=== PATIENT | female | born 1960 | race Caucasian/White ===

== ENCOUNTER 2018-04-09 08:48 | Observation (INO) ==
[2018-04-09 09:30] LABS: Bilirubin,Urine Small (Negative); Blood,Urine Negative (Negative); Clarity,Urine Clear (Clear); Color,Urine Yellow (Yellow); Glucose,Urine (UA) Normal (Normal); Ketones,Urine 15 mg/dL (Negative); Leukocyte Esterase,Urine Small (Negative); Nitrite,Urine Negative (Negative); PH,Urine 6.5 pH Units (5.0-8.0); Protein,Urine 30 mg/dL (Neg-Trace); Specific Gravity,Urine 1.013 (1.010-1.025); Urobilinogen,Urine Normal (Normal)
[2018-04-09 09:33] LABS: Bacteria,Urine None Seen per hpf (None-Few); Hyaline Casts,Urine None Seen per lpf (None-Few); RBC,Urine 0-3 per hpf (0-3); Squamous Epithelial Cell,Urine Many per lpf (None-Few)
[2018-04-09] MEDS ORDERED: *HR* FentaNYL (PF) 100 MCG/2 ML VIAL IVP ONE (09:51)
[2018-04-09] MEDS ORDERED: 0.9 % Sodium Chloride 1,000 ML IVC ONE (09:51)
[2018-04-09 10:03] LABS: Basophils # 0.1 K/mcL (0.0-0.2); Basophils % 0.3 %; Eosinophils # 0.1 K/mcL (0.0-0.6); Eosinophils % 0.8 %; Hematocrit 46.6 % (35.3-44.9); Hemoglobin 16.1 g/dL (11.5-15.4); Immature Granulocytes % 0.3 % (0-4); Immature Platelets 1.5 % (1.1-6.1); Lymphocytes # 2.6 K/mcL (0.6-4.6); Lymphocytes % 16.9 %; Mean Corpuscular HGB Conc 34.5 g/dL (31.6-35.5); Mean Corpuscular Hemoglobin 29.4 pg (28.0-33.3); Mean Corpuscular Volume 85.2 fL (83.0-100.0); Mean Platelet Volume 8.8 fL (9.4-12.4); Monocytes # 0.8 K/mcL (0.0-1.3); Monocytes % 5.5 %; Neutrophils # 11.7 K/mcL (1.6-8.9); Platelet Count 329 K/mcL (140-400); Red Blood Count 5.47 M/mcL (3.82-4.97); Red Cell Distribution Width 14.9 % (11.5-14.5); Segmented Neutrophils % 76.2 %
--- NOTE | 2018-04-09 10:11 | Emergency Department Note ---
Disposition Clinical Impression: Intractable pain, Ureterolithiasis Disposition: Admitted As Inpatient Condition: Fair Time of Disposition: 09:50 Abdominal Pain HPI - General Chief Complaint: ED Abdominal Pain Stated Complaint: "kidney stone"-sent from Dr Sarkar Time Seen by Provider: 04/09/18 09:11 Source: patient Mode of arrival: ambulatory Limitations: no limitations Nursing Notes Reviewed: Yes Vital Signs Reviewed: Yes - History of Present Illness HPI Narrative: 57-year-old female presents emergency Department with concerns of worsening left flank pain. Patient states she has a 7 mm stone in the left ureter and follows Dr. Sarkar. Patient had a scheduled removal of the stone within the past 2 weeks however her had a heart attack and she therefore canceled the surgery. She now has surgery scheduled for 1 week from now however the pain has become significantly worse. Patient is currently taking oxycodone at home without improvement of her symptoms. She apparently called Dr. Sarkar's office multiple times yesterday, today he recommended she be admitted to the hospital for further evaluation. She denies fever, chills, vomiting, diarrhea, hematochezia, melena. No recent trauma. Pain Scale: 10 - Related Data Allergies Allergy/AdvReac Type Severity Reaction Status Date / Time acetaminophen [From Tylenol] Allergy See Verified 04/09/18 08:52 Comments cephalexin Allergy See Verified 04/09/18 08:52 Comments ciprofloxacin [From Cipro] Allergy See Verified 04/09/18 08:52 Comments levofloxacin Allergy See Verified 04/09/18 08:52 Comments nitrofurantoin Allergy See Verified 04/09/18 08:52 Comments NSAIDS (Non-Steroidal Allergy See Verified 04/09/18 08:52 Anti-Inflamma Comments Penicillins Allergy See Verified 04/09/18 08:52 Comments IV CONTRAST Allergy See Uncoded 08/23/15 16:57 Comments TRIPONS Allergy See Uncoded 08/23/15 16:57 Comments All systems ED: reviewed and negative except as stated. Review of Systems: As Per HPI Abdominal Pain PMH - Past Medical History Medical history: Reports: diabetes, hypertension Female Surgical History: Reports: appendectomy, , herniorrhaphy, hysterectomy, knee replacement Psychiatric history: Reports: depression - Social History Smoking status: Never smoker Alcohol use: Reports: none Drug use: Reports: none Physical Exam General: Alert and in no acute distress Skin: Warm, dry, intact Head: Normocephalic and atraumatic Neck: Supple, trachea midline and no tenderness Cardiovascular: RRR, no murmur, normal perfusion Respiratory: CTAB, no wheezing, cough, or respiratory distress Musculoskeletal: Normal strength, tenderness to percussion of left CVA GI: Soft, nontender, nondistended. Bowel sounds present Neuro: A&O to person, place, time and situation. No focal deficits noted on exam Psychiatric: cooperative and appropriate mood and affect. - General General appearance: alert Course Vital Signs Temperature 98.3 F 04/09/18 08:50 Pulse Rate 125 04/09/18 08:50 Respiratory Rate 18 04/09/18 08:50 Blood Pressure 130/87 04/09/18 08:50 O2 Sat by Pulse Oximetry 95 04/09/18 08:50 Temperature 98.3 F 04/09/18 09:05 Pulse Rate 125 04/09/18 09:05 Respiratory Rate 18 04/09/18 09:05 Blood Pressure 130/87 04/09/18 09:05 O2 Sat by Pulse Oximetry 95 04/09/18 09:05 Oxygen Delivery Oxygen Delivery Room Air Abdominal Pain - MDM Narrative Medical decision making narrative: Patient denied have a urinary tract infection on urinalysis. I spoke with Dr. Sarkar who recommended KUB for further evaluation of the stone. He recommended admitting the patient to his service for further evaluation. - Medical Records Medical records reviewed: Yes I reviewed the patient's medical records. - Lab Data Lab results reviewed: Yes I reviewed the patient's lab results. Result diagrams: 04/09/18 09:56 Lab Results 04/09/18 04/09/18 Range/Units 09:13 09:56 WBC 15.4 H (4.3-11.1) K/mcL RBC 5.47 H (3.82-4.97) M/mcL Hgb 16.1 H (11.5-15.4) g/dL Hct 46.6 H (35.3-44.9) % MCV 85.2 (83.0-100.0) fL MCH 29.4 (28.0-33.3) pg MCHC 34.5 (31.6-35.5) g/dL RDW 14.9 H (11.5-14.5) % Plt Count 329 (140-400) K/mcL MPV 8.8 L (9.4-12.4) fL Immature Gran % 0.3 (0-4) % Seg Neutrophils % 76.2 % Lymphocytes % 16.9 % Monocytes % 5.5 % Eosinophils % 0.8 % Basophils % 0.3 % Neutrophils # 11.7 H (1.6-8.9) K/mcL Lymphocytes # 2.6 (0.6-4.6) K/mcL Monocytes # 0.8 (0.0-1.3) K/mcL Eosinophils # 0.1 (0.0-0.6) K/mcL Basophils # 0.1 (0.0-0.2) K/mcL Immature Plt Fraction 1.5 (1.1-6.1) % Urine Color Yellow (Yellow) Urine Clarity Clear (Clear) Urine pH 6.5 (5.0-8.0) pH Units Ur Specific [place] 1.013 (1.010-1.025) Urine Protein 30 H (Neg-Trace) mg/dL Urine Glucose (UA) Normal (Normal) mg/dL Urine Ketones 15 H (Negative) mg/dL Urine Blood Negative (Negative) Urine Nitrite Negative (Negative) Urine Bilirubin Small H (Negative) Urine Urobilinogen Normal (Normal) mg/dL Ur Leukocyte Esterase Small H (Negative) Urine Microscopic RBC 0-3 (0-3) per hpf Urine Microscopic WBC 5-15 H (0-3) per hpf Ur Squamous Epith Cells Many H (None-Few) per lpf Urine Bacteria None Seen (None-Few) per hpf Hyaline Casts None Seen (None-Few) per lpf Ur Culture Indicated? NO. A (NO)
[2018-04-09 10:15] LABS: INR 1.1; Prothrombin Time 12.7 Seconds (9.4-12.1)
[2018-04-09 10:18] LABS: Activated Partial Thrombo Time 35.2 Seconds (26.0-36.0)
[2018-04-09 10:25] LABS: BUN/Creatinine Ratio 9 (6-26); Blood Urea Nitrogen 7 mg/dL (6-20); Calcium 10.2 mg/dL (8.6-10.3); Carbon Dioxide 17 mEq/L (23-29); Chloride 103 mEq/L (98-107); Glucose 128 mg/dL (70-105); Osmolality,Calculated 282 (280-300); Potassium 3.3 mEq/L (3.5-5.1); Sodium 136 mEq/L (136-145); eGFR For Non-African Americans > 60 (> 60)
--- NOTE | 2018-04-09 11:07 | Emergency Department Note ---
Disposition Clinical Impression: Intractable pain, Ureterolithiasis Disposition: Admitted As Inpatient Condition: Fair General Adult HPI - General Chief complaint: ED Abdominal Pain Stated complaint: "kidney stone"-sent from Dr Sarkar Time Seen by Provider: 04/09/18 09:11 Source: patient Mode of arrival: ambulatory Limitations: no limitations - History of Present Illness Pain Scale: 10 - Related Data Home Medications Medication Instructions Recorded Confirmed Albuterol Sulfate [Albuterol 2 puff IH Q4H PRN 04/09/18 04/09/18 Inhaler] Aspirin Enteric Coated [Aspirin EC] 81 mg PO DAILY 04/09/18 04/09/18 Atorvastatin [Lipitor] 40 mg PO HS 04/09/18 04/09/18 Buspirone HCl [Buspar] 15 mg PO TID PRN 04/09/18 04/09/18 Chlorzoxazone [Chlorzoxazone] 0.5 - 1 tab PO TID PRN 04/09/18 04/09/18 Cholecalciferol (D-3) [Vitamin D] 2,000 unit PO DAILY 04/09/18 04/09/18 DULoxetine [Cymbalta] 60 mg PO DAILY 04/09/18 04/09/18 Ezetimibe [Ezetimibe] 10 mg PO DAILY 04/09/18 04/09/18 Ferrous Sulfate [Iron] 325 mg PO BID 04/09/18 04/09/18 Glimepiride [Amaryl] 6 mg PO QAM 04/09/18 04/09/18 Hyoscyamine SL [Levsin SL] 1 - 2 tab SL Q4-6H PRN 04/09/18 04/09/18 Insulin Glargine,Hum.rec.anlog 10 unit SQ HS 04/09/18 04/09/18 [Basaglar Kwikpen U-100] Levothyroxine Sodium [Levoxyl] 200 mcg PO DAILY 04/09/18 04/09/18 Metformin HCl [Metformin HCl ER] 500 mg PO QID 04/09/18 04/09/18 Metoprolol [Lopressor] 25 mg PO BID 04/09/18 04/09/18 Neomycin Sulfate 500 mg PO MOWEFR 04/09/18 04/09/18 Oxycodone HCl [Oxycodone HCl] 5 mg PO Q6H PRN 04/09/18 04/09/18 Potassium Citrate [Urocit-K] 20 meq PO BID 04/09/18 04/09/18 Pregabalin [Lyrica] 200 mg PO TID 04/09/18 04/09/18 Allergies Allergy/AdvReac Type Severity Reaction Status Date / Time acetaminophen [From Tylenol] Allergy See Verified 04/09/18 08:52 Comments cephalexin Allergy See Verified 04/09/18 08:52 Comments ciprofloxacin [From Cipro] Allergy See Verified 04/09/18 08:52 Comments levofloxacin Allergy See Verified 04/09/18 08:52 Comments nitrofurantoin Allergy See Verified 04/09/18 08:52 Comments NSAIDS (Non-Steroidal Allergy See Verified 04/09/18 08:52 Anti-Inflamma Comments Penicillins Allergy See Verified 04/09/18 08:52 Comments IV CONTRAST Allergy See Uncoded 08/23/15 16:57 Comments TRIPONS Allergy See Uncoded 08/23/15 16:57 Comments Past Medical History - Past Medical History Medical history: Reports: diabetes, hypertension Surgical history: Reports: appendectomy, hysterectomy Psychiatric history: Reports: depression - Social History Smoking Status: Never smoker Alcohol use: Reports: none Drug use: Reports: none Physical Exam - General Limitations: no limitations General appearance: alert Course Vital Signs Temperature 98.3 F 04/09/18 08:50 Pulse Rate 125 04/09/18 08:50 Respiratory Rate 18 04/09/18 08:50 Blood Pressure 130/87 04/09/18 08:50 O2 Sat by Pulse Oximetry 95 04/09/18 08:50 Temperature 98.3 F 04/09/18 09:05 Pulse Rate 125 04/09/18 09:05 Respiratory Rate 18 04/09/18 09:05 Blood Pressure 130/87 04/09/18 09:05 O2 Sat by Pulse Oximetry 95 04/09/18 09:05 Oxygen Delivery Oxygen Delivery Room Air Medical Decision Making - Lab Data Result diagrams: 04/09/18 09:56 04/09/18 09:56 Lab Results 04/09/18 04/09/18 04/09/18 Range/Units 09:13 09:56 09:56 WBC 15.4 H (4.3-11.1) K/mcL RBC 5.47 H (3.82-4.97) M/mcL Hgb 16.1 H (11.5-15.4) g/dL Hct 46.6 H (35.3-44.9) % MCV 85.2 (83.0-100.0) fL MCH 29.4 (28.0-33.3) pg MCHC 34.5 (31.6-35.5) g/dL RDW 14.9 H (11.5-14.5) % Plt Count 329 (140-400) K/mcL MPV 8.8 L (9.4-12.4) fL Immature Gran % 0.3 (0-4) % Seg Neutrophils % 76.2 % Lymphocytes % 16.9 % Monocytes % 5.5 % Eosinophils % 0.8 % Basophils % 0.3 % Neutrophils # 11.7 H (1.6-8.9) K/mcL Lymphocytes # 2.6 (0.6-4.6) K/mcL Monocytes # 0.8 (0.0-1.3) K/mcL Eosinophils # 0.1 (0.0-0.6) K/mcL Basophils # 0.1 (0.0-0.2) K/mcL Immature Plt Fraction 1.5 (1.1-6.1) % PT 12.7 H (9.4-12.1) Seconds INR 1.1 APTT 35.2 (26.0-36.0) Seconds Sodium (136-145) mEq/L Potassium (3.5-5.1) mEq/L Chloride (98-107) mEq/L Carbon Dioxide (23-29) mEq/L BUN (6-20) mg/dL Creatinine (0.60-1.20) mg/dL Est GFR ( Amer) (> 60) Est GFR (Non-Af Amer) (> 60) BUN/Creatinine Ratio (6-26) Glucose (70-105) mg/dL Calculated Osmolality (280-300) Calcium (8.6-10.3) mg/dL Urine Color Yellow (Yellow) Urine Clarity Clear (Clear) Urine pH 6.5 (5.0-8.0) pH Units Ur Specific [place] 1.013 (1.010-1.025) Urine Protein 30 H (Neg-Trace) mg/dL Urine Glucose (UA) Normal (Normal) mg/dL Urine Ketones 15 H (Negative) mg/dL Urine Blood Negative (Negative) Urine Nitrite Negative (Negative) Urine Bilirubin Small H (Negative) Urine Urobilinogen Normal (Normal) mg/dL Ur Leukocyte Esterase Small H (Negative) Urine Microscopic RBC 0-3 (0-3) per hpf Urine Microscopic WBC 5-15 H (0-3) per hpf Ur Squamous Epith Cells Many H (None-Few) per lpf Urine Bacteria None Seen (None-Few) per hpf Hyaline Casts None Seen (None-Few) per lpf Ur Culture Indicated? NO. A (NO) 04/09/18 Range/Units 09:56 WBC (4.3-11.1) K/mcL RBC (3.82-4.97) M/mcL Hgb (11.5-15.4) g/dL Hct (35.3-44.9) % MCV (83.0-100.0) fL MCH (28.0-33.3) pg MCHC (31.6-35.5) g/dL RDW (11.5-14.5) % Plt Count (140-400) K/mcL MPV (9.4-12.4) fL Immature Gran % (0-4) % Seg Neutrophils % % Lymphocytes % % Monocytes % % Eosinophils % % Basophils % % Neutrophils # (1.6-8.9) K/mcL Lymphocytes # (0.6-4.6) K/mcL Monocytes # (0.0-1.3) K/mcL Eosinophils # (0.0-0.6) K/mcL Basophils # (0.0-0.2) K/mcL Immature Plt Fraction (1.1-6.1) % PT (9.4-12.1) Seconds INR APTT (26.0-36.0) Seconds Sodium 136 (136-145) mEq/L Potassium 3.3 L (3.5-5.1) mEq/L Chloride 103 (98-107) mEq/L Carbon Dioxide 17 L (23-29) mEq/L BUN 7 (6-20) mg/dL Creatinine 0.75 (0.60-1.20) mg/dL Est GFR ( Amer) > 60 (> 60) Est GFR (Non-Af Amer) > 60 (> 60) BUN/Creatinine Ratio 9 (6-26) Glucose 128 H (70-105) mg/dL Calculated Osmolality 282 (280-300) Calcium 10.2 (8.6-10.3) mg/dL Urine Color (Yellow) Urine Clarity (Clear) Urine pH (5.0-8.0) pH Units Ur Specific [place] (1.010-1.025) Urine Protein (Neg-Trace) mg/dL Urine Glucose (UA) (Normal) mg/dL Urine Ketones (Negative) mg/dL Urine Blood (Negative) Urine Nitrite (Negative) Urine Bilirubin (Negative) Urine Urobilinogen (Normal) mg/dL Ur Leukocyte Esterase (Negative) Urine Microscopic RBC (0-3) per hpf Urine Microscopic WBC (0-3) per hpf Ur Squamous Epith Cells (None-Few) per lpf Urine Bacteria (None-Few) per hpf Hyaline Casts (None-Few) per lpf Ur Culture Indicated? (NO)
--- NOTE | 2018-04-09 11:29 | Urology History & Physical ---
<Radha Zimmer N - Last Filed: 04/09/18 11:26> Date of Encounter: 04/09/18 Time of Encounter: 11:26 Assessment and Plan (1) Ureterolithiasis Current Visit: Yes Status: Acute Patient is a 57-year-old female with a 7mm left proximal ureteral stone. Patient is tentatively scheduled for ureteroscopic stone extraction with Dr. Sarkar, however given the patient's acute presentation, we will proceed with surgery more promptly. I discussed in detail the surgical procedure as well as potential risks and complications. The patient has previously undergone two ESWL procedures without complication. The patient verbalizes understanding, consent has been signed, and she is prepared to undergo a left ureteroscopic stone extraction with or without laser lithotripsy, and left ureteral stent placement. History of Present Illness Chief complaint: Left flank pain HPI: Ms. Bravo is a 57 year old female who presents to the emergency department with left flank pain and a known left proximal ureteral stone. The patient was previously scheduled for a ureteroscopic stone extraction with Dr. Sarkar. Patient states her to schedule her surgery secondary to her having a myocardial infarction. The patient was subsequently rescheduled for surgery next week, but she states the pain has acutely worsened and she is unable to wait another week. The patient denies any marilee blood in the urine, she admits to frequency, urgency, and hesitancy. Patient denies fever, chills, nausea or vomiting. The patient has undergone KUB x-ray in the emergency department today. Past Med Surg Social Fam HX - Past Medical History Medical history: diabetes, hypertension Psychiatric history: depression - Past Surgical History Surgical History: appendectomy, hysterectomy - Social History Smoking Status: Never smoker Alcohol use: none Drug use: none Medications and Allergies Albuterol Sulfate [Albuterol Inhaler] 2 puff IH Q4H PRN 04/09/18 [History] Aspirin Enteric Coated [Aspirin EC] 81 mg PO DAILY 04/09/18 [History] Atorvastatin [Lipitor] 40 mg PO HS 04/09/18 [History] Buspirone HCl [Buspar] 15 mg PO TID PRN 04/09/18 [History] Chlorzoxazone [Chlorzoxazone] 0.5 - 1 tab PO TID PRN 04/09/18 [History] Cholecalciferol (D-3) [Vitamin D] 2,000 unit PO DAILY 04/09/18 [History] DULoxetine [Cymbalta] 60 mg PO DAILY 04/09/18 [History] Ezetimibe [Ezetimibe] 10 mg PO DAILY 04/09/18 [History] Ferrous Sulfate [Iron] 325 mg PO BID 04/09/18 [History] Glimepiride [Amaryl] 6 mg PO QAM 04/09/18 [History] Hyoscyamine SL [Levsin SL] 1 - 2 tab SL Q4-6H PRN 04/09/18 [History] Insulin Glargine,Hum.rec.anlog [Basaglar Kwikpen U-100] 10 unit SQ HS 04/09/18 [ History] Levothyroxine Sodium [Levoxyl] 200 mcg PO DAILY 04/09/18 [History] Metformin HCl [Metformin HCl ER] 500 mg PO QID 04/09/18 [History] Metoprolol [Lopressor] 25 mg PO BID 04/09/18 [History] Neomycin Sulfate 500 mg PO MOWEFR 04/09/18 [History] Oxycodone HCl [Oxycodone HCl] 5 mg PO Q6H PRN 04/09/18 [History] Potassium Citrate [Urocit-K] 20 meq PO BID 04/09/18 [History] Pregabalin [Lyrica] 200 mg PO TID 04/09/18 [History] 3 Allergy/AdvReac Type Severity Reaction Status Date / Time acetaminophen [From Tylenol] Allergy See Verified 04/09/18 08:52 Comments cephalexin Allergy See Verified 04/09/18 08:52 Comments ciprofloxacin [From Cipro] Allergy See Verified 04/09/18 08:52 Comments levofloxacin Allergy See Verified 04/09/18 08:52 Comments nitrofurantoin Allergy See Verified 04/09/18 08:52 Comments NSAIDS (Non-Steroidal Allergy See Verified 04/09/18 08:52 Anti-Inflamma Comments Penicillins Allergy See Verified 04/09/18 08:52 Comments IV CONTRAST Allergy See Uncoded 08/23/15 16:57 Comments TRIPONS Allergy See Uncoded 08/23/15 16:57 Comments Review of Systems - Constitutional as per HPI, no chills, no fatigue, no fever(s), no weakness - EENT Nose, mouth and throat: no dizziness, no headache(s) - Cardiovascular no chest pain, no dyspnea - Respiratory no cough, no dyspnea - Gastrointestinal no abdominal pain, no change in bowel habits, no nausea, no vomiting - Genitourinary Genitourinary: as per HPI, flank pain, urinary frequency, urinary hesitancy, urinary urgency, no change in urinary stream, no difficulty urinating, no dysuria, no hematuria, no urinary incontinence - Musculoskeletal no muscle weakness, no numbness - Integumentary no rash, no swelling - Neurological no confusion, no sensory deficit Exam Initial Vital Signs Temp Pulse Resp BP Pulse Ox 98.3 F 125 18 130/87 95 04/09/18 08:50 04/09/18 08:50 04/09/18 08:50 04/09/18 08:50 04/09/18 08:50 - General physical appearance Present: well developed, well nourished, no distress - Eyes Present: PERRL, normal ocular movement - ENT Present: normal nares. Absent: nasal discharge - Neck Present: no masses, trachea midline - Respiratory Present: normal respiratory effort - Cardiovascular Cardiovascular exam IM: RRR - Abdomen Abdomen: Present: soft, non tender - Integumentary Present: no rash, no growths, no abnormal pigmentation - Neurologic Present: normal coordination. Absent: disoriented, confused - Musculoskeletal Present: other (no pedal edema ) Urology Results - Labs 04/09/18 09:56 04/09/18 09:56 Abnormal lab results WBC 15.4 K/mcL (4.3-11.1) H 04/09/18 09:56 RBC 5.47 M/mcL (3.82-4.97) H 04/09/18 09:56 Hgb 16.1 g/dL (11.5-15.4) H 04/09/18 09:56 Hct 46.6 % (35.3-44.9) H 04/09/18 09:56 RDW 14.9 % (11.5-14.5) H 04/09/18 09:56 MPV 8.8 fL (9.4-12.4) L 04/09/18 09:56 Neutrophils # 11.7 K/mcL (1.6-8.9) H 04/09/18 09:56 PT 12.7 Seconds (9.4-12.1) H 04/09/18 09:56 Potassium 3.3 mEq/L (3.5-5.1) L 04/09/18 09:56 Carbon Dioxide 17 mEq/L (23-29) L 04/09/18 09:56 Glucose 128 mg/dL (70-105) H 04/09/18 09:56 Urine Protein 30 mg/dL (Neg-Trace) H 04/09/18 09:13 Urine Ketones 15 mg/dL (Negative) H 04/09/18 09:13 Urine Bilirubin Small (Negative) H 04/09/18 09:13 Ur Leukocyte Esterase Small (Negative) H 04/09/18 09:13 Urine Microscopic WBC 5-15 per hpf (0-3) H 04/09/18 09:13 Ur Squamous Epith Cells Many per lpf (None-Few) H 04/09/18 09:13 Ur Culture Indicated? NO. (NO) A 04/09/18 09:13 All other labs normal. - Imaging Abdominal x-ray: report reviewed, image reviewed <Bryce Sarkar - Last Filed: 04/09/18 16:34> Date of Encounter: 04/09/18 Assessment and Plan (1) Ureterolithiasis Current Visit: Yes Status: Acute Patient was seen and examined by myself. KUB confirms a 5 mm distal left ureteral calculi. Patient continues to have pain. I agree with plan to proceed with a left ureteroscopic stone extraction with holmium laser lithotripsy and ureteral stent placement. Will hopefully discharge the patient tonight or tomorrow morning when her pain has improved. Leukocytosis is likely reaction to the stone. No other evidence of sepsis or infection History of Present Illness HPI: Ms. Bravo is a 57 year old female Exam Initial Vital Signs Temp Pulse Resp BP Pulse Ox 98.3 F 125 18 130/87 95 04/09/18 08:50 04/09/18 08:50 04/09/18 08:50 04/09/18 08:50 04/09/18 08:50 Urology Results - Labs 04/09/18 09:56 04/09/18 09:56 Abnormal lab results WBC 15.4 K/mcL (4.3-11.1) H 04/09/18 09:56 RBC 5.47 M/mcL (3.82-4.97) H 04/09/18 09:56 Hgb 16.1 g/dL (11.5-15.4) H 04/09/18 09:56 Hct 46.6 % (35.3-44.9) H 04/09/18 09:56 RDW 14.9 % (11.5-14.5) H 04/09/18 09:56 MPV 8.8 fL (9.4-12.4) L 04/09/18 09:56 Neutrophils # 11.7 K/mcL (1.6-8.9) H 04/09/18 09:56 PT 12.7 Seconds (9.4-12.1) H 04/09/18 09:56 Potassium 3.3 mEq/L (3.5-5.1) L 04/09/18 09:56 Carbon Dioxide 17 mEq/L (23-29) L 04/09/18 09:56 Glucose 128 mg/dL (70-105) H 04/09/18 09:56 Urine Protein 30 mg/dL (Neg-Trace) H 04/09/18 09:13 Urine Ketones 15 mg/dL (Negative) H 04/09/18 09:13 Urine Bilirubin Small (Negative) H 04/09/18 09:13 Ur Leukocyte Esterase Small (Negative) H 04/09/18 09:13 Urine Microscopic WBC 5-15 per hpf (0-3) H 04/09/18 09:13 Ur Squamous Epith Cells Many per lpf (None-Few) H 04/09/18 09:13 Ur Culture Indicated? NO. (NO) A 04/09/18 09:13 All other labs normal.
[2018-04-09] MEDS ORDERED: Ondansetron 4 MG/2 ML VIAL IVP PRN (11:37)
[2018-04-09] MEDS ORDERED: Naloxone 0.4 MG/ML INJ IVP PRN ×2 (11:37→18:13)
[2018-04-09] MEDS ORDERED: 0.9 % Sodium Chloride 1,000 ML IVC SCH (11:45)
[2018-04-09] MEDS ORDERED: *HR* OxyCODONE Immed Rel 5 MG TABLET PO PRN ×2 (12:24→17:24)
[2018-04-09] MEDS ORDERED: OXYCODONE Oral CONC 10 MG/0.5 ML ORAL.SYG SL PRN (12:26)
--- NOTE | 2018-04-09 15:53 | Anesthesia Evaluation PreOp ---
Date of Encounter: 04/09/18 Time of Encounter: 15:51 - Past History Planned Operation: Left USE Cardiac History: HTN Pulmonary History: Denies Any Significant HX [employer] History: Denies Any Significant HX Other Medical History: Renal (Medullary kidney disease, renal tubular acidosis, left ureteric stone), Diabetes Type II Anesthesia History: Past Anesthesia, Problems (PONV) Alcohol Use: none Drug use: none Medications and Allergies Albuterol Sulfate [Albuterol Inhaler] 2 puff IH Q4H PRN 04/09/18 [History] Aspirin Enteric Coated [Aspirin EC] 81 mg PO DAILY 04/09/18 [History] Atorvastatin [Lipitor] 40 mg PO HS 04/09/18 [History] Buspirone HCl [Buspar] 15 mg PO TID PRN 04/09/18 [History] Chlorzoxazone [Chlorzoxazone] 0.5 - 1 tab PO TID PRN 04/09/18 [History] Cholecalciferol (D-3) [Vitamin D] 2,000 unit PO DAILY 04/09/18 [History] DULoxetine [Cymbalta] 60 mg PO DAILY 04/09/18 [History] Ezetimibe [Ezetimibe] 10 mg PO DAILY 04/09/18 [History] Ferrous Sulfate [Iron] 325 mg PO BID 04/09/18 [History] Glimepiride [Amaryl] 6 mg PO QAM 04/09/18 [History] Hyoscyamine SL [Levsin SL] 1 - 2 tab SL Q4-6H PRN 04/09/18 [History] Insulin Glargine,Hum.rec.anlog [Basaglar Kwikpen U-100] 10 unit SQ HS 04/09/18 [ History] Levothyroxine Sodium [Levoxyl] 200 mcg PO DAILY 04/09/18 [History] Metformin HCl [Metformin HCl ER] 500 mg PO QID 04/09/18 [History] Metoprolol [Lopressor] 25 mg PO BID 04/09/18 [History] Neomycin Sulfate 500 mg PO MOWEFR 04/09/18 [History] Oxycodone HCl [Oxycodone HCl] 5 mg PO Q6H PRN 04/09/18 [History] Potassium Citrate [Urocit-K] 20 meq PO BID 04/09/18 [History] Pregabalin [Lyrica] 200 mg PO TID 04/09/18 [History] 3 Allergy/AdvReac Type Severity Reaction Status Date / Time acetaminophen [From Tylenol] Allergy See Verified 04/09/18 08:52 Comments cephalexin Allergy See Verified 04/09/18 08:52 Comments ciprofloxacin [From Cipro] Allergy See Verified 04/09/18 08:52 Comments levofloxacin Allergy See Verified 04/09/18 08:52 Comments nitrofurantoin Allergy See Verified 04/09/18 08:52 Comments NSAIDS (Non-Steroidal Allergy See Verified 04/09/18 08:52 Anti-Inflamma Comments Penicillins Allergy See Verified 04/09/18 08:52 Comments IV CONTRAST Allergy See Uncoded 08/23/15 16:57 Comments TRIPONS Allergy See Uncoded 08/23/15 16:57 Comments - Meds/Allergy Pre-op Review Medications Reviewed: Yes Allergies Reviewed: Yes Anesthesia Results - Labs 04/09/18 09:56 04/09/18 09:56 Anesthesia Exam HEIGHT: 1.5m WEIGHT: 65 kg BMI: 29 Vital Signs/O2 Sat/Glucose, Most Recent Temp Pulse Resp BP Pulse Ox 98.4 F 90 18 117/82 96 04/09/18 12:17 04/09/18 12:17 04/09/18 12:17 04/09/18 12:17 04/09/18 12:17 Blood Glucose* 73 - HEENT Mallampati: I Teeth: Normal Oral Opening: Greater than 3 - Cardiac Rhythm: Regular - Pulmonary Breath Sounds: bilateral Clear Anesthesia Assess/Plan ASA Score: 2 Modified Scott Scale for Level of Consciousness: Cooperative, oriented, and tranquil Anesthetic Plan: General Monitoring Plan: Standard Monitors Recovery Plan: PACU
[2018-04-09] MEDS ORDERED: Vancomycin 1,000 MG VIAL ONE (16:13)
[2018-04-09] MEDS ORDERED: Vancomycin 1,000 MG in D5% in Water 250 ML IVPB ONE (16:48)
[2018-04-09] MEDS ORDERED: Isovue-300 50 ML VIAL IVP ONE (16:49)
[2018-04-09] MEDS ORDERED: *HR* Phenylephrine 10 MG/ML VIAL ONE (16:59)
[2018-04-09] MEDS ORDERED: Ondansetron 4 MG/2 ML VIAL ONE ×2 (17:19→18:06)
[2018-04-09] MEDS ORDERED: Dexamethasone 4 MG/ML VIAL ONE ×2 (17:19→18:06)
[2018-04-09] MEDS ORDERED: *HR* Metoprolol 5 MG/5 ML VIAL IVP ONE (17:20)
[2018-04-09] MEDS ORDERED: Ondansetron 4 MG/2 ML VIAL IVP ONE (17:24)
[2018-04-09] MEDS ORDERED: *HR* Promethazine 25 MG/ML VIAL IVP PRN (17:24)
[2018-04-09] MEDS ORDERED: Ringers Solution, Lactated 1,000 ML IVC SCH (17:30)
[2018-04-09] MEDS ORDERED: *HR* Propofol 200 MG/20 ML VIAL IVP ONE (18:06)
[2018-04-09] MEDS ORDERED: *HR* Midazolam HCl 2 MG/2 ML VIAL ONE (18:06)
[2018-04-09] MEDS ORDERED: *HR* FentaNYL (PF) 100 MCG/2 ML VIAL ONE (18:06)
[2018-04-09] MEDS ORDERED: Lidocaine -MPF 2% 2 ML VIAL ONE (18:06)
[2018-04-09] MEDS ORDERED: Dextrose Gel 15 GM/37.5 ML TUBE PO PRN ×2 (18:13)
[2018-04-09] MEDS ORDERED: *HR* Dextrose 50 % in Water (Syg) 50 ML SYRINGE IVP PRN (18:13)
[2018-04-09] MEDS ORDERED: D5% in Water 1,000 ML IVC PRN (18:13)
--- NOTE | 2018-04-09 18:23 | Operative Note ---
Date of procedure: 04/09/18 Pre-op diagnosis: left distal ureteral stone Post-op diagnosis: same Procedure: left ureteroscopic stone extraction with holmium laser left JJ stent. Anesthesia: GETA Surgeon: Bryce Sarkar Was there an asset protection assistant present: No Estimated blood loss (cc): 0 Specimen: stone fragments Condition: stable Disposition: PACU Procedure in Detail: PROCEDURE IN DETAIL: Patient was taken back to the operating room, positioned supine on the operating table. Anesthesia was applied without complication. They were moved into dorsal lithotomy. Careful attention was maintained to cushion all pressure points for patient's safety. They were prepped and draped in sterile fashion. Time-out was performed with the proper patient and procedure. A 21-Bhutanese rigid cystoscope was inserted into the bladder without difficulty. Systematic examination of bladder revealed no abnormalities. The ureteral orifice was cannulated using a 5-Bhutanese ureteral Catheter and a zip wire passed. A semi-rigid ureteroscope was carefully inserted into the bladder and guided into the ureteral oriface. At that point, the stone was encountered and I felt that it required fragmentation for safe extraction. A 200 micron holmium laser fiber on a setting of 8 and 800 was used to fragment the stone into multiple pieces. The fragments were individually basketed out of the ureter with a 1.9 tipless basket. All stone in the ureter was removed. A 4.8 x 26 ureteral stent was placed over the zip wire under fluoroscopy without complication. The bladder was drained along with the stone fragments. They were collected and sent for stone analysis. The string was left attached to the stent and secured to the patient for easy removal in approximately 72 hours
--- NOTE | 2018-04-09 18:35 | Anesthesia Evaluation Post Op ---
Date of Encounter: 04/09/18 Time of Encounter: 18:05 Notes: Patient's vital signs have been reviewed. Patient is stable postoperatively and has adequately recovered from anesthesia. Patient is determined to have stable airway patency and respiratory function including respiratory rate and oxygen saturation. Patient has a stable heart rate, blood pressure and adequate hydration. Patients mental status is acceptable. Patients temperature is appropriate. Pain and nausea are adequately controlled. - Discharge PostOp Status: Transfer Patient to floor
[2018-04-09] MEDS: Ondansetron 4 MG/2 ML VIAL IVP PRN (19:57)
[2018-04-09] MEDS: *HR* OxyCODONE Immed Rel 5 MG TABLET PO PRN (19:57)
[2018-04-09] MEDS: Insulin LISPRO 300 UNITS/3 ML VIAL SQ SCH (20:27)
[2018-04-09] MEDS: *HR* Metformin 500 MG TABLET PO SCH (21:23)
[2018-04-09] MEDS: Insulin DETEMIR 100 UNIT/ML X5UNITS SQ SCH (21:24)
[2018-04-09] MEDS: Potassium Citrate 10 MEQ TABLET.ER PO SCH (21:24)
[2018-04-09] MEDS: Pregabalin 50 MG CAPSULE PO SCH (21:24)
[2018-04-09] MEDS: OXYCODONE Oral CONC 10 MG/0.5 ML ORAL.SYG SL PRN (23:30)
[2018-04-10] MEDS: Insulin LISPRO 300 UNITS/3 ML VIAL SQ SCH ×4 (02:41→18:19)
[2018-04-10] MEDS: *HR* OxyCODONE Immed Rel 5 MG TABLET PO PRN ×3 (03:39→19:43)
--- NOTE | 2018-04-10 08:32 | Urology Progress Note ---
Date of Encounter: 04/10/18 Time of Encounter: 08:29 - Assessment and Plan (1) Ureterolithiasis Current Visit: Yes Status: Acute Assessment and plan: Patient is a 57-year-old female who underwent a left ureteral stone extraction and left ureteral stent placement on 04/09/2018. This morning the patient accidentally pulled out her ureteral stent while using the restroom. After pulling the stomach, the patient has experienced increased pain. The patient does not believe she is able to go home at this time as her pain has not been well controlled, and she is unable to tolerate normal diet secondary to pain and nausea. We will try IV Zofran and slowly advancing her diet, as well as achieving adequate pain control with oral pain medicine. We will reassess the patient in the morning for potential discharge at that time. Progress Note Subjective: still having pain, tolerating liquids well, no bowel movement, nausea, afebrile Narrative: Patient seen and examined sitting upright in bed in no apparent distress. Patient reports increased pain with accidental stent removal this morning. The patient reports feeling nauseated but no emesis. Patient has not been able to tolerate a normal diet. Patient is voiding without difficulty. Urine is clear. Patient is requesting Zofran. I inquired about patient's allergy to acetaminophen, and patient states she experienced an overdose on Percocet in the past. She was told she is no longer able to ingest acetaminophen safely. Objective Initial Vital Signs Temp Pulse Resp BP Pulse Ox 98.3 F 125 18 130/87 95 04/09/18 08:50 04/09/18 08:50 04/09/18 08:50 04/09/18 08:50 04/09/18 08:50 - General physical appearance Present: well developed, well nourished, no distress, moderate pain - Respiratory Present: normal expansion, normal respiratory effort - Abdomen Present: soft, tender. Absent: distended - Genitourinary Present: other (Left CVAT) - Integumentary Present: no rash, no growths, no abnormal pigmentation - Musculoskeletal Present: normal posture - Psychiatric Present: oriented to time, oriented to person, oriented to place, speech is normal, memory intact - Labs 04/09/18 09:56 04/09/18 09:56 - VTE Documentation of Mechanical Device: Intermittent pneumatic compression device Consult Discharge Plan - Plan Referrals: Tila Quezada MD [Primary Care Provider] -
[2018-04-10] MEDS: OXYCODONE Oral CONC 10 MG/0.5 ML ORAL.SYG SL PRN ×3 (08:44→23:28)
[2018-04-10] MEDS: Ondansetron 4 MG/2 ML VIAL IVP PRN ×2 (08:45→19:37)
[2018-04-10] MEDS: *HR* Glimepiride 2 MG TABLET PO SCH (10:39)
[2018-04-10] MEDS: *HR* Metformin 500 MG TABLET PO SCH ×4 (10:39→20:04)
[2018-04-10] MEDS: Pregabalin 50 MG CAPSULE PO SCH ×3 (10:39→19:46)
[2018-04-10] MEDS: Aspirin Enteric Coated 81 MG Tablet PO SCH (10:40)
[2018-04-10] MEDS: (Ezetimibe [Ezetimibe] 10 MG) PO SCH (10:41)
[2018-04-10] MEDS: Cholecalciferol (D-3) 1,000 UNIT TABLET PO SCH (10:41)
[2018-04-10] MEDS: Potassium Citrate 10 MEQ TABLET.ER PO SCH ×2 (10:41→19:44)
--- NOTE | 2018-04-10 15:31 | Event Note ---
Date of Encounter: 04/10/18 Time of Encounter: 15:27 Patient seen and examined lying in bed. Patient states her pain is more controlled. Patient states Zofran has improved nausea, but she experienced emesis x 1 after eating breakfast. Patient reports sublingual Oxycodone alleviates pain better than 5mg oral dose. Patient states she wishes to stay one more night due to transportation issues and further pain management. Will reevaluate for discharge in am.
[2018-04-10] MEDS: Insulin DETEMIR 100 UNIT/ML X5UNITS SQ SCH (23:27)
[2018-04-11] MEDS: Insulin LISPRO 300 UNITS/3 ML VIAL SQ SCH ×3 (00:34→12:05)
[2018-04-11] MEDS: *HR* OxyCODONE Immed Rel 5 MG TABLET PO PRN ×2 (02:45→12:13)
[2018-04-11] MEDS: Ondansetron 4 MG/2 ML VIAL IVP PRN ×2 (05:27→12:07)
[2018-04-11] MEDS: OXYCODONE Oral CONC 10 MG/0.5 ML ORAL.SYG SL PRN (05:27)
--- NOTE | 2018-04-11 07:59 | Discharge Summary ---
Orders not resulted at time of discharge: Pending orders 04/09/18 17:21 Calculi (stone) Analysis Routine Surgical Pathology [PTH] Routine Date of Encounter: 04/11/18 Time of Encounter: 08:00 - Discharge Diagnosis (1) Ureterolithiasis Priority: Primary Status: Acute (2) Intractable pain Priority: Secondary Status: Acute - Hospital Course Hospital course: Ms. Bravo is a 57 year old female who is a known patient to Dr. Sarkar that presented to the emergency department with complaints of left flank pain, nausea and vomiting. The patient was known to have an existing ureteral stone and was scheduled for surgery. Ultimately given the patient's acute presentation, she was taken to the operating room on 04/09/2018 where she underwent a left ureteroscopic stone extraction with holmium laser and left JJ stent placement. The patient tolerated the procedure well. There were no surgical complications. Her postoperative course did include intractable nausea and intractable pain for which the patient did stay an extra night in the hospital. Upon evaluating the patient at the day of discharge, her symptoms were found to be much improved. The patient is tolerating a normal diet, her pain is well-controlled with oral pain medicine, she was voiding without difficulty and progressing back to baseline. I have discussed with her postoperative restrictions, activity, and follow-up, and she is dismissed in satisfactory condition. Time spent discussing smoking cessation with patient: 3 to 10 minutes - Time Spent with Patient Total time spent providing and/or coordinating discharge services: Less than 30 minutes Procedures and tests throughout hospitalization: left ureteroscopic stone extraction with holmium laser left jj stent placement Labs on day of discharge: Labs from last 24 hours 04/10/18 04/10/18 04/10/18 23:55 19:58 17:03 POC Glucose 114 H 133 H 121 H 04/10/18 04/10/18 11:15 07:20 POC Glucose 113 H 146 H - Impressions ITS Impressions Fluoroscopy 04/09/18 17:05 IMPRESSION: Intraprocedural fluoroscopic spot images as above. See separate procedure report for more information. D/ /09/2018 17:49:53 Keegan Clinton MD / meseret Interpreting Provider: Keegan Clinton MD X-Ray 04/09/18 17:05 IMPRESSION: Intraprocedural fluoroscopic spot images as above. See separate procedure report for more information. D/ /09/2018 17:49:53 Keegan Clinton MD / meseret Interpreting Provider: Keegan Clinton MD - Discharge Medications Prescriptions: Sulfamethoxazole/Trimeth DS [Bactrim DS] 1 each PO BID 7 Days #14 tablet Home Medications: Albuterol Sulfate [Albuterol Inhaler] 2 puff IH Q4H PRN 04/09/18 [History] Aspirin Enteric Coated [Aspirin EC] 81 mg PO DAILY 04/09/18 [History] Atorvastatin [Lipitor] 40 mg PO HS 04/09/18 [History] Buspirone HCl [Buspar] 15 mg PO TID PRN 04/09/18 [History] Chlorzoxazone 0.5 - 1 tab PO TID PRN 04/09/18 [History] Cholecalciferol (D-3) [Vitamin D] 2,000 unit PO DAILY 04/09/18 [History] DULoxetine [Cymbalta] 60 mg PO DAILY 04/09/18 [History] Ezetimibe 10 mg PO DAILY 04/09/18 [History] Ferrous Sulfate [Iron] 325 mg PO BID 04/09/18 [History] Glimepiride [Amaryl] 6 mg PO QAM 04/09/18 [History] Hyoscyamine SL [Levsin Sl] 1 - 2 tab SL Q4-6H PRN 04/09/18 [History] Insulin Glargine,Hum.rec.anlog [Basaglar Kwikpen U-100] 10 unit SQ HS 04/09/18 [ History] Levothyroxine Sodium [Levoxyl] 200 mcg PO DAILY 04/09/18 [History] Metformin HCl [Metformin HCl ER] 500 mg PO QID 04/09/18 [History] Metoprolol [Lopressor] 25 mg PO BID 04/09/18 [History] Neomycin Sulfate 500 mg PO MOWEFR 04/09/18 [History] Potassium Citrate [Urocit-K] 20 meq PO BID 04/09/18 [History] Pregabalin [Lyrica] 200 mg PO TID 04/09/18 [History] Oxycodone HCl 5 mg PO Q6H PRN 3 Days #12 04/11/18 [Rx] Sulfamethoxazole/Trimeth DS [Bactrim DS] 1 each PO BID 7 Days #14 tablet [Rx] Allergies/Adverse Reactions: 3 Allergy/AdvReac Type Severity Reaction Status Date / Time acetaminophen [From Tylenol] Allergy See Verified 04/09/18 08:52 Comments cephalexin Allergy See Verified 04/09/18 08:52 Comments ciprofloxacin [From Cipro] Allergy See Verified 04/09/18 08:52 Comments levofloxacin Allergy See Verified 04/09/18 08:52 Comments nitrofurantoin Allergy See Verified 04/09/18 08:52 Comments NSAIDS (Non-Steroidal Allergy See Verified 04/09/18 08:52 Anti-Inflamma Comments Penicillins Allergy See Verified 04/09/18 08:52 Comments IV CONTRAST Allergy See Uncoded 08/23/15 16:57 Comments TRIPONS Allergy See Uncoded 08/23/15 16:57 Comments Date of admission: 04/09/18 10:07 Primary care physician: Tila Quezada MD Discharging clinician: Radha Zimmer Anticipated date of discharge: 04/11/18 Exam Initial Vital Signs Temp Pulse Resp BP Pulse Ox 98.3 F 125 18 130/87 95 04/09/18 08:50 04/09/18 08:50 04/09/18 08:50 04/09/18 08:50 04/09/18 08:50 - General physical appearance Present: well developed, well nourished, no distress - ENT Present: normal nares. Absent: nasal discharge - Neck Present: no masses, trachea midline - Respiratory Present: normal respiratory effort - Cardiovascular Cardiovascular exam IM: RRR - Abdomen Abdomen: Present: soft, non tender - Genitourinary Present: other (no CVAT bilaterally ) - Integumentary Present: no rash, no abnormal pigmentation - Neurologic Present: normal coordination. Absent: disoriented, confused - Musculoskeletal Present: other (no pedal edema ) - Patient Status Disposition: Home, Self-Care Condition: Good Functional capacity at discharge: uses cane/walker Overall status at discharge: patient is progressing back to baseline - Discharge Instructions Follow Up With: Tila Quezada MD [Primary Care Provider] - Bryce Sarkar MD [Partnered Physician] - Forms: ED Satisfaction Letter, Work/School Release Additional Instructions: Call if fever greater than 101 degrees. Okay to shower. Okay to drive if you are no longer taking her cardiac pain medicine. May experience blood in the urine. May experience irritating voiding symptoms such as frequency, burning, hesitancy , urgency. No heavy lifting greater than 20 pounds or heavy activity for 2 weeks. Call office for follow-up appointment in 4-6 weeks. - Diet and Activity Activity: increase activity as tolerated Diet: diabetic diet - VTE Documentation of Mechanical Device: Intermittent pneumatic compression device
[2018-04-11] MEDS: *HR* Glimepiride 2 MG TABLET PO SCH (09:43)
[2018-04-11] MEDS: *HR* Metformin 500 MG TABLET PO SCH ×2 (09:44→12:05)
[2018-04-11] MEDS: (Ezetimibe [Ezetimibe] 10 MG) PO SCH (09:44)
[2018-04-11] MEDS: Pregabalin 50 MG CAPSULE PO SCH (10:21)
[2018-04-11] MEDS: Potassium Citrate 10 MEQ TABLET.ER PO SCH (10:21)
[2018-04-11] MEDS: Cholecalciferol (D-3) 1,000 UNIT TABLET PO SCH (10:21)
[2018-04-11] MEDS: Aspirin Enteric Coated 81 MG Tablet PO SCH (10:21)
[2018-04-11 12:14] VITALS: BP 113/71
== END 2018-04-11 14:12 | disposition home or self-care (01) ==
LOC: 3BNU 08:48 → EMEROO 08:48 → 3BNU 11:31
PROVIDERS: ADMIT Urology; ATTEND Urology

== ENCOUNTER 2018-05-06 14:58 | Observation (INO) ==
[2018-05-06] MEDS ORDERED: OXYCODONE Oral CONC 10 MG/0.5 ML ORAL.SYG SL PRN (16:13)
[2018-05-06] MEDS ORDERED: Ondansetron 4 MG/2 ML VIAL IVP PRN (16:13)
[2018-05-06] MEDS ORDERED: *HR* Promethazine 25 MG/ML VIAL IVP PRN (16:13)
[2018-05-06] MEDS ORDERED: Naloxone 0.4 MG/ML INJ IVP PRN (16:13)
[2018-05-06] MEDS ORDERED: Hyoscyamine SL 0.125 MG TAB.SUBL SL PRN (16:13)
[2018-05-06] MEDS ORDERED: *HR* Belladonna Alkaloids/Opium 30 MG RECTAL SUPPOSITORY RC PRN (16:13)
[2018-05-06] MEDS ORDERED: *HR* Dextrose 50 % in Water (Syg) 50 ML SYRINGE IVP PRN (16:16)
[2018-05-06] MEDS ORDERED: D5% in Water 1,000 ML IVC PRN (16:16)
[2018-05-06] MEDS ORDERED: Dextrose Gel 15 GM/37.5 ML TUBE PO PRN ×2 (16:16)
[2018-05-06] MEDS ORDERED: Gentamicin 80 MG/2 ML VIAL IVPB ONE (16:17)
--- NOTE | 2018-05-06 16:22 | Urology History & Physical ---
Date of Encounter: 05/06/18 Time of Encounter: 16:21 Assessment and Plan (1) Ureteral stone with hydronephrosis Current Visit: Yes Status: Acute pt states the pain is "terrible" I reviewed the ct images and this is likely a small stone. may have passed from the kidney after recent surgery. will proceed with stone extraction tomorrow. placed on the schedule for tomorrow. pain control tonight. strain urine. History of Present Illness Chief complaint: left flank pain HPI: Ms. Bravo is a 57 year old female recent stone extraction for a 6 mm stone. recurrent flank pain and repeat CT scan showed a 3 mm UVJ stone. still having pain. no fever. some nausea. Past Med Surg Social Fam HX - Past Medical History Medical history: diabetes, hypertension Psychiatric history: depression - Past Surgical History Surgical History: appendectomy, hysterectomy Additional surgical history: Left knee replacement, carpal tunnel hernia repair - Social History Smoking Status: Never smoker Smokeless Tobacco Status: No Alcohol use: none Drug use: none Medications and Allergies Albuterol Sulfate [Albuterol Inhaler] 2 puff IH Q4H PRN 04/09/18 [History] Aspirin Enteric Coated [Aspirin EC] 81 mg PO DAILY 04/09/18 [History] Atorvastatin [Lipitor] 40 mg PO HS 04/09/18 [History] Buspirone HCl [Buspar] 15 mg PO TID PRN 04/09/18 [History] Chlorzoxazone 0.5 - 1 tab PO TID PRN 04/09/18 [History] Cholecalciferol (D-3) [Vitamin D] 2,000 unit PO DAILY 04/09/18 [History] DULoxetine [Cymbalta] 60 mg PO DAILY 04/09/18 [History] Ezetimibe 10 mg PO DAILY 04/09/18 [History] Ferrous Sulfate [Iron] 325 mg PO BID 04/09/18 [History] Glimepiride [Amaryl] 6 mg PO QAM 04/09/18 [History] Hyoscyamine SL [Levsin Sl] 1 - 2 tab SL Q4-6H PRN 04/09/18 [History] Insulin Glargine,Hum.rec.anlog [Basaglar Kwikpen U-100] 10 unit SQ HS 04/09/18 [ History] Levothyroxine Sodium [Levoxyl] 200 mcg PO DAILY 04/09/18 [History] Metformin HCl [Metformin HCl ER] 500 mg PO QID 04/09/18 [History] Metoprolol [Lopressor] 25 mg PO BID 04/09/18 [History] Neomycin Sulfate 500 mg PO MOWEFR 04/09/18 [History] Potassium Citrate [Urocit-K] 20 meq PO BID 04/09/18 [History] Pregabalin [Lyrica] 200 mg PO TID 04/09/18 [History] Oxycodone HCl 5 mg PO Q6H PRN 3 Days #12 04/11/18 [Rx] Sulfamethoxazole/Trimeth DS [Bactrim DS] 1 each PO BID 7 Days #14 tablet [Rx] 3 Allergy/AdvReac Type Severity Reaction Status Date / Time acetaminophen [From Tylenol] Allergy See Verified 04/09/18 08:52 Comments cephalexin Allergy See Verified 04/09/18 08:52 Comments ciprofloxacin [From Cipro] Allergy See Verified 04/09/18 08:52 Comments levofloxacin Allergy See Verified 04/09/18 08:52 Comments nitrofurantoin Allergy See Verified 04/09/18 08:52 Comments NSAIDS (Non-Steroidal Allergy See Verified 04/09/18 08:52 Anti-Inflamma Comments Penicillins Allergy See Verified 04/09/18 08:52 Comments IV CONTRAST Allergy See Uncoded 08/23/15 16:57 Comments TRIPONS Allergy See Uncoded 08/23/15 16:57 Comments Review of Systems - Constitutional as per HPI, fatigue, no chills, no fever(s) - EENT Nose, mouth and throat: no dizziness - Cardiovascular no chest pain - Respiratory no cough - Gastrointestinal abdominal pain, nausea - Genitourinary Genitourinary: flank pain - Musculoskeletal back pain - Integumentary no erythema - Neurological no confusion - Psychiatric no anxiety - Hematologic/Lymphatic no easy bleeding - Allergic/Immunologic no throat swelling Exam Initial Vital Signs Temp Pulse Resp BP Pulse Ox 98.3 F 84 16 131/74 94 05/06/18 15:46 05/06/18 15:46 05/06/18 15:46 05/06/18 15:46 05/06/18 15:46 - General physical appearance Present: well developed, moderate pain - Eyes Present: PERRL - ENT Present: normal nares - Neck Present: no masses - Respiratory Present: normal respiratory effort - Cardiovascular Cardiovascular exam IM: RRR - Abdomen Abdomen: Present: soft, non tender, suprapubic tenderness - Integumentary Present: no rash - Neurologic Present: normal coordination. Absent: disoriented, confused - Additional Findings +CVA tender on left Urology Results - Labs All other labs normal.
[2018-05-06 17:15] LABS: Basophils # 0.1 K/mcL (0.0-0.2); Basophils % 0.4 %; Eosinophils # 0.1 K/mcL (0.0-0.6); Eosinophils % 1.1 %; Hemoglobin 12.3 g/dL (11.5-15.4); Immature Granulocytes % 0.3 % (0-4); Lymphocytes # 2.4 K/mcL (0.6-4.6); Lymphocytes % 20.7 %; Mean Corpuscular HGB Conc 33.2 g/dL (31.6-35.5); Mean Corpuscular Hemoglobin 29.1 pg (28.0-33.3); Mean Corpuscular Volume 87.7 fL (83.0-100.0); Mean Platelet Volume 9.4 fL (9.4-12.4); Monocytes # 0.8 K/mcL (0.0-1.3); Monocytes % 6.7 %; Platelet Count 200 K/mcL (140-400); Red Blood Count 4.22 M/mcL (3.82-4.97); Red Cell Distribution Width 15.4 % (11.5-14.5); Segmented Neutrophils % 70.8 %
[2018-05-06 17:19] LABS: BUN/Creatinine Ratio 21 (6-26); Blood Urea Nitrogen 13 mg/dL (6-20); Calcium 9.1 mg/dL (8.6-10.3); Carbon Dioxide 23 mEq/L (23-29); Chloride 108 mEq/L (98-107); Glucose 127 mg/dL (70-105); Osmolality,Calculated 286 (280-300); Potassium 3.7 mEq/L (3.5-5.1); Sodium 137 mEq/L (136-145); eGFR For Non-African Americans > 60 (> 60)
[2018-05-06] MEDS: OXYCODONE Oral CONC 10 MG/0.5 ML ORAL.SYG SL PRN ×2 (17:21→21:25)
[2018-05-06] MEDS: Insulin LISPRO 300 UNITS/3 ML VIAL SQ SCH ×2 (17:24→23:24)
[2018-05-06] MEDS: 0.9 % Sodium Chloride 1,000 ML IVC SCH (17:24)
[2018-05-07] MEDS: OXYCODONE Oral CONC 10 MG/0.5 ML ORAL.SYG SL PRN ×4 (02:17→20:23)
[2018-05-07] MEDS: 0.9 % Sodium Chloride 1,000 ML IVC SCH ×2 (03:00→16:00)
[2018-05-07] MEDS: Insulin LISPRO 300 UNITS/3 ML VIAL SQ SCH ×3 (05:58→17:16)
[2018-05-07] MEDS ORDERED: Gentamicin 80 MG in 0.9 % Sodium Chloride 100 ML IVPB ONE ×3 (08:00→14:46)
--- NOTE | 2018-05-07 08:55 | Event Note ---
Date of Encounter: 05/07/18 Time of Encounter: 08:53 Patient seen and examined lying in bed in no apparent distress. Patient states pain is well controlled at present. Patient is resting comfortably with no new concerns. Patient denies any questions about procedure.
[2018-05-07] MEDS ORDERED: Pregabalin 50 MG CAPSULE PO SCH (09:00)
[2018-05-07] MEDS ORDERED: Aspirin Enteric Coated 81 MG Tablet PO SCH (09:00)
[2018-05-07] MEDS ORDERED: *HR* FentaNYL (PF) 100 MCG/2 ML VIAL ONE (12:01)
[2018-05-07] MEDS ORDERED: *HR* Midazolam HCl 2 MG/2 ML VIAL ONE (12:02)
[2018-05-07] MEDS ORDERED: *HR* Propofol 200 MG/20 ML VIAL IVP ONE (12:02)
[2018-05-07] MEDS ORDERED: Lidocaine -MPF 2% 2 ML VIAL ONE (12:03)
[2018-05-07] MEDS ORDERED: Ondansetron 4 MG/2 ML VIAL ONE (12:03)
[2018-05-07] MEDS ORDERED: Dexamethasone 4 MG/ML VIAL ONE (12:03)
[2018-05-07] MEDS ORDERED: *HR* Promethazine 25 MG/ML VIAL IVP PRN ×2 (13:20→14:46)
[2018-05-07] MEDS ORDERED: *HR* OxyCODONE Immed Rel 5 MG TABLET PO PRN (13:20)
[2018-05-07] MEDS ORDERED: *HR* FentaNYL (PF) 100 MCG/2 ML VIAL IVP PRN ×2 (13:20→14:46)
--- NOTE | 2018-05-07 13:21 | Anesthesia Evaluation PreOp ---
Date of Encounter: 05/07/18 Time of Encounter: 13:19 - Past History Planned Operation: Left Ureteroscopic Stone Extraction Cardiac History: HTN, Hyperlipidemia Pulmonary History: Former smoker (quit 37 years ago), Asthma NURSE CHARGE RN History: Seizures (one seizure in 2007, not being medically treated) Other Medical History: Diabetes Type II, Thyroid Anesthesia History: Past Anesthesia, Problems (PONV) Alcohol Use: none Drug use: none Medications and Allergies Albuterol Sulfate [Albuterol Inhaler] 2 puff IH Q4H PRN 04/09/18 [History] Aspirin Enteric Coated [Aspirin EC] 81 mg PO DAILY 04/09/18 [History] Atorvastatin [Lipitor] 40 mg PO HS 04/09/18 [History] Buspirone HCl [Buspar] 15 mg PO QID 04/09/18 [History] Cholecalciferol (D-3) [Vitamin D] 2,000 unit PO DAILY 04/09/18 [History] DULoxetine [Cymbalta] 60 mg PO DAILY 04/09/18 [History] Ezetimibe 10 mg PO DAILY 04/09/18 [History] Ferrous Sulfate [Iron] 325 mg PO BID 04/09/18 [History] Insulin Glargine,Hum.rec.anlog [Basaglar Kwikpen U-100] 10 unit SQ HS 04/09/18 [ History] Levothyroxine Sodium [Levoxyl] 200 mcg PO DAILY 04/09/18 [History] Metformin HCl [Metformin HCl ER] 500 mg PO QID 04/09/18 [History] Neomycin Sulfate 500 mg PO WEFR 04/09/18 [History] Potassium Citrate [Urocit-K] 20 meq PO BID 04/09/18 [History] Pregabalin [Lyrica] 200 mg PO TID 04/09/18 [History] Flunisolide [Flunisolide] 2 spr NS BID 05/07/18 [History] OxyCODONE Immed Rel [Roxicodone 5 MG] 5 mg PO Q12HR 05/07/18 [History] Zolmitriptan [Zomig] 5 mg PO DAILY PRN 05/07/18 [History] hydroCHLOROthiazide [Hydrochlorothiazide] 12.5 mg PO DAILY 05/07/18 [History] 3 Allergy/AdvReac Type Severity Reaction Status Date / Time acetaminophen [From Tylenol] Allergy See Verified 04/09/18 08:52 Comments cephalexin Allergy See Verified 04/09/18 08:52 Comments ciprofloxacin [From Cipro] Allergy See Verified 04/09/18 08:52 Comments levofloxacin Allergy See Verified 04/09/18 08:52 Comments nitrofurantoin Allergy See Verified 04/09/18 08:52 Comments NSAIDS (Non-Steroidal Allergy See Verified 04/09/18 08:52 Anti-Inflamma Comments Penicillins Allergy See Verified 04/09/18 08:52 Comments IV CONTRAST Allergy See Uncoded 08/23/15 16:57 Comments TRIPONS Allergy See Uncoded 08/23/15 16:57 Comments - Meds/Allergy Pre-op Review Medications Reviewed: Yes Allergies Reviewed: Yes Beta Blockers on Current Med List: Yes If Beta Blockers taken, Date/Time (Last Dose taken): 05/07/2018 at 0815 Anesthesia Results - Labs 05/06/18 16:47 05/06/18 16:47 Anesthesia Exam Vital Signs/O2 Sat/Glucose, Most Recent Temp Pulse Resp BP Pulse Ox 97.7 F 64 14 99/63 96 05/07/18 10:23 05/07/18 10:23 05/07/18 10:23 05/07/18 10:23 05/07/18 10:23 Blood Glucose* 97 Height: 4'11''/1.5m Weight: 156 lbs/71 kg NPO (# of Hours): 8 Pain Scale: 10 (left side) Pain Scale Used: Numeric (1 - 10) - HEENT Pupil (Motor): EOMI Mallampati: II Teeth: Normal Oral Opening: Greater than 3 - NURSE CHARGE RN LOC: Oriented NURSE CHARGE RN Motor: Normal RUE, Normal LUE, Normal RLE, Normal LLE, Normal Face NURSE CHARGE RN Sensory: Normal: RUE, LUE, Face, Deficit: RLE, LLE - Cardiac Rhythm: Regular Murmur: None - Pulmonary Breath Sounds: bilateral Clear Respiratory Effort: Symmetrical Anesthesia Assess/Plan ASA Score: 3 Modified Scott Scale for Level of Consciousness: Cooperative, oriented, and tranquil Anesthetic Plan: General Monitoring Plan: Standard Monitors Recovery Plan: PACU
[2018-05-07] MEDS ORDERED: Isovue-300 50 ML VIAL IVP ONE (13:34)
[2018-05-07] MEDS ORDERED: EPHEDrine 50 MG/ML VIAL ONE (14:01)
--- NOTE | 2018-05-07 14:19 | Discharge Summary ---
Date of Encounter: 05/07/18 Time of Encounter: 14:16 - Discharge Diagnosis (1) Ureteral stone with hydronephrosis Priority: Primary Status: Resolved - Hospital Course Hospital course: Ms. Bravo is a 57 year old female admitted with a 3 mm distal ureteral stone. Status post successful stone extraction. Plan to discharge from pain controlled - Time Spent with Patient Total time spent providing and/or coordinating discharge services: Labs on day of discharge: Labs from last 24 hours 05/06/18 05/06/18 05/06/18 20:58 16:47 16:47 WBC 11.3 H RBC 4.22 Hgb 12.3 Hct 37.0 MCV 87.7 MCH 29.1 MCHC 33.2 RDW 15.4 H Plt Count 200 MPV 9.4 Immature Gran % 0.3 Seg Neutrophils % 70.8 Lymphocytes % 20.7 Monocytes % 6.7 Eosinophils % 1.1 Basophils % 0.4 Neutrophils # 8.0 Lymphocytes # 2.4 Monocytes # 0.8 Eosinophils # 0.1 Basophils # 0.1 Sodium 137 Potassium 3.7 Chloride 108 H Carbon Dioxide 23 BUN 13 Creatinine 0.62 Est GFR ( Amer) > 60 Est GFR (Non-Af Amer) > 60 BUN/Creatinine Ratio 21 Glucose 127 H POC Glucose 139 H Calculated Osmolality 286 Calcium 9.1 - Discharge Medications Home Medications: Albuterol Sulfate [Albuterol Inhaler] 2 puff IH Q4H PRN 04/09/18 [History] Aspirin Enteric Coated [Aspirin EC] 81 mg PO DAILY 04/09/18 [History] Atorvastatin [Lipitor] 40 mg PO HS 04/09/18 [History] Buspirone HCl [Buspar] 15 mg PO QID 04/09/18 [History] Cholecalciferol (D-3) [Vitamin D] 2,000 unit PO DAILY 04/09/18 [History] DULoxetine [Cymbalta] 60 mg PO DAILY 04/09/18 [History] Ezetimibe 10 mg PO DAILY 04/09/18 [History] Ferrous Sulfate [Iron] 325 mg PO BID 04/09/18 [History] Insulin Glargine,Hum.rec.anlog [Basaglar Kwikpen U-100] 10 unit SQ HS 04/09/18 [ History] Levothyroxine Sodium [Levoxyl] 200 mcg PO DAILY 04/09/18 [History] Metformin HCl [Metformin HCl ER] 500 mg PO QID 04/09/18 [History] Neomycin Sulfate 500 mg PO WEFR 04/09/18 [History] Potassium Citrate [Urocit-K] 20 meq PO BID 04/09/18 [History] Pregabalin [Lyrica] 200 mg PO TID 04/09/18 [History] Flunisolide 2 spr NS BID 05/07/18 [History] Insulin LISPRO [HumaLOG] 0 units SQ Q6HR vial 05/07/18 [Rx] Metoprolol [Lopressor] 25 mg PO BID tablet 05/07/18 [Rx] OxyCODONE Immed Rel [Roxicodone 5 MG] 5 mg PO Q12HR 05/07/18 [History] Zolmitriptan [Zomig] 5 mg PO DAILY PRN 05/07/18 [History] hydroCHLOROthiazide [Hydrochlorothiazide] 12.5 mg PO DAILY 05/07/18 [History] Allergies/Adverse Reactions: 3 Allergy/AdvReac Type Severity Reaction Status Date / Time acetaminophen [From Tylenol] Allergy See Verified 04/09/18 08:52 Comments cephalexin Allergy See Verified 04/09/18 08:52 Comments ciprofloxacin [From Cipro] Allergy See Verified 04/09/18 08:52 Comments levofloxacin Allergy See Verified 04/09/18 08:52 Comments nitrofurantoin Allergy See Verified 04/09/18 08:52 Comments NSAIDS (Non-Steroidal Allergy See Verified 04/09/18 08:52 Anti-Inflamma Comments Penicillins Allergy See Verified 04/09/18 08:52 Comments IV CONTRAST Allergy See Uncoded 08/23/15 16:57 Comments TRIPONS Allergy See Uncoded 08/23/15 16:57 Comments Date of admission: 05/06/18 15:25 Primary care physician: Tila Quezada MD Discharging clinician: Bryce Sarkar Anticipated date of discharge: 05/07/18 Exam Initial Vital Signs Temp Pulse Resp BP Pulse Ox 98.3 F 84 16 131/74 94 05/06/18 15:46 05/06/18 15:46 05/06/18 15:46 05/06/18 15:46 05/06/18 15:46 - General physical appearance Present: well developed, no distress - Patient Status Disposition: Home, Self-Care Condition: Good Functional capacity at discharge: independent ambulation Overall status at discharge: patient is progressing back to baseline - Discharge Instructions Follow Up With: Tila Quezada MD [Primary Care Provider] - Bryce Sarkar MD [Partnered Physician] - (my office will contact pt to schedule stent removal) Additional Instructions: Expect stent discomfort including urgency, frequency, burning on urination, blood in the urine, light flank pain My office will contact patient to schedule stent removal - Diet and Activity Activity: other Diet: diabetic diet
--- NOTE | 2018-05-07 14:21 | Operative Note ---
Date of procedure: 05/07/18 Pre-op diagnosis: left 3 mm ureteral stone Post-op diagnosis: same Procedure: Left ureteroscopic stone extraction Left ureteral stent placement Anesthesia: GETA Surgeon: Bryce Sarkar Was there an assistant teaching professor present: No Estimated blood loss (cc): 0 Specimen: Stone not sent Condition: stable Disposition: PACU Procedure in Detail: PROCEDURE IN DETAIL: Patient was taken back to the operating room, positioned supine on the operating table. Anesthesia was applied without complication. They were moved into dorsal lithotomy. Careful attention was maintained to cushion all pressure points for patient's safety. They were prepped and draped in sterile fashion. Time-out was performed with the proper patient and procedure. A 21-Danish rigid cystoscope was inserted into the bladder without difficulty. Systematic examination of bladder revealed no abnormalities. The ureteral orifice was cannulated using a 5-Danish ureteral Catheter and a zip wire was passed. I then passed the semirigid ureteroscope into the distal ureter and encountered the stone which corresponded to 3 mm stone seen on outside imaging. I was able to basket extract the stone without performing laser lithotripsy. I then placed a 4.8 x 24 ureteral stent area and I did not leave a dangle string because the patient previously accidentally removed her stent immediately after a previous stone extraction.
[2018-05-07] MEDS ORDERED: *HR* Belladonna Alkaloids/Opium 30 MG RECTAL SUPPOSITORY RC PRN (14:46)
[2018-05-07] MEDS ORDERED: *HR* Dextrose 50 % in Water (Syg) 50 ML SYRINGE IVP PRN (14:46)
[2018-05-07] MEDS ORDERED: Dextrose Gel 15 GM/37.5 ML TUBE PO PRN ×2 (14:46)
[2018-05-07] MEDS ORDERED: Hyoscyamine SL 0.125 MG TAB.SUBL SL PRN (14:46)
[2018-05-07] MEDS ORDERED: D5% in Water 1,000 ML IVC PRN (14:46)
[2018-05-07] MEDS ORDERED: Naloxone 0.4 MG/ML INJ IVP PRN (14:46)
[2018-05-07] MEDS ORDERED: OXYCODONE Oral CONC 10 MG/0.5 ML ORAL.SYG SL PRN (14:46)
--- NOTE | 2018-05-07 15:16 | Anesthesia Evaluation Post Op ---
Date of Encounter: 05/07/18 Time of Encounter: 15:14 - Vital Signs Vital Signs: Vital Signs/O2 Sat, Most Current Temp Pulse Resp BP Pulse Ox 98.1 F 82 16 104/67 95 05/07/18 14:56 05/07/18 14:56 05/07/18 14:56 05/07/18 14:56 05/07/18 14:56 - Lungs Lungs: Clear Ascult./Percussion - Airway Airway: Non-obstructed - Mental Status Mental Status: Alert & Oriented, Answers Appropriately - Pain Pain Scale: 0 Pain Scale used: Numeric (1 - 10) - Nausea Vomiting Nausea Vomiting: Not Present - Hydration Hydration: Ice chips - Discharge PostOp Status: Transfer Patient to floor Attestation: I have assessed this patient and find they meet discharge criteria.
[2018-05-07] MEDS: Pregabalin 50 MG CAPSULE PO SCH ×2 (15:54→20:23)
[2018-05-08] MEDS: Insulin LISPRO 300 UNITS/3 ML VIAL SQ SCH ×2 (00:13→05:44)
[2018-05-08] MEDS: OXYCODONE Oral CONC 10 MG/0.5 ML ORAL.SYG SL PRN ×3 (00:30→10:34)
[2018-05-08] MEDS: Ondansetron 4 MG/2 ML VIAL IVP PRN ×2 (00:34→08:25)
[2018-05-08] MEDS: 0.9 % Sodium Chloride 1,000 ML IVC SCH (01:50)
[2018-05-08 05:42] VITALS: BP 99/59
--- NOTE | 2018-05-08 07:30 | Urology Progress Note ---
Date of Encounter: 05/08/18 Time of Encounter: 07:28 - Assessment and Plan (1) Ureteral stone with hydronephrosis Current Visit: Yes Status: Resolved Assessment and plan: p states her ride will be here at 10 am. will arrange outpatient cysto stent removal. Progress Note Subjective: feels better Narrative: pt feels well. some blood in the urine. Objective Initial Vital Signs Temp Pulse Resp BP Pulse Ox 98.3 F 84 16 131/74 94 05/06/18 15:46 05/06/18 15:46 05/06/18 15:46 05/06/18 15:46 05/06/18 15:46 - General physical appearance Present: no distress - Labs 05/06/18 16:47 05/06/18 16:47 - VTE Documentation of Mechanical Device: Intermittent pneumatic compression device Consult Discharge Plan - Plan Additional Instructions: Expect stent discomfort including urgency, frequency, burning on urination, blood in the urine, light flank pain My office will contact patient to schedule stent removal Referrals: Bryce Sarkar MD [Partnered Physician] - (my office will contact pt to schedule stent removal) Tila Quezada MD [Primary Care Provider] -
[2018-05-08] MEDS: Pregabalin 50 MG CAPSULE PO SCH (08:26)
[2018-05-08] MEDS ORDERED: Aspirin Enteric Coated 81 MG Tablet PO SCH (09:00)
[2018-05-08] MEDS ORDERED: (Ezetimibe [Ezetimibe] 10 MG) PO SCH (09:00)
== END 2018-05-08 10:49 | disposition home or self-care (01) ==
LOC: 3ANU
PROVIDERS: ADMIT Urology; ATTEND Urology

== ENCOUNTER 2018-05-16 13:59 | Observation (INO) ==
[2018-05-16] MEDS ORDERED: *HR* HYDROcodone/Acet 5/325 mg TABLET PO PRN (17:20)
[2018-05-16] MEDS ORDERED: Naloxone 0.4 MG/ML INJ IVP PRN (17:20)
[2018-05-16] MEDS ORDERED: NON-FORMULARY MEDICATION 1 EACH EACH (Zolmitriptan [Zomig] 5 MG) PO PRN (17:29)
--- NOTE | 2018-05-16 17:37 | Internal Med History&Physical ---
Date of Encounter: 05/16/18 Time of Encounter: 17:36 Internal Medicine - H&P: HPI Chief complaint: Flank Pain and Tachycardia and Leukocytosis Admitted From: Hospital to Hospital Transfer Plans for Post Hospital Care: Home History of present illness: Ms. Bravo is a 57 year old female after being sent in for leukocytosis done on outpatient lab primary care physician. Patient reports left flank pain and elevated heart rate as well. Patient recently had ureteral stent patient by Dr. Sarkar on the 07 of May. Patient states that she has had discomfort in the left flank however the pain is gotten worse over the past few days and is now having significant pain with urination. Patient was tachycardic in the 120s per documentation at [facility] department. The patient was given IV fluids and given 1 dose of IV Levaquin and transferred to [facility] for further management. Patient states that she is having moderate pain on her left flank as well as pain with urination. Patient denies any chest pain, shortness of breath, nausea, vomiting, diarrhea. Patient states that she always has a fast heart rate. Denies any recent fever or chills at home. Denies travel or sick contacts. Multiple allergies but tolerated IV Levaquin without issues at [facility] Past Med Surg Social Fam HX - Past Medical History Medical history: diabetes, hypertension Psychiatric history: depression - Past Surgical History Surgical History: appendectomy, hysterectomy Additional surgical history: Left knee replacement, carpal tunnel hernia repair - Social History Smoking Status: Never smoker Smokeless Tobacco Status: No Alcohol use: none Drug use: none Internal Medicine - H&P: Meds Albuterol Sulfate [Albuterol Inhaler] 2 puff IH Q4H PRN 04/09/18 [History] Aspirin Enteric Coated [Aspirin EC] 81 mg PO DAILY 04/09/18 [History] Atorvastatin [Lipitor] 40 mg PO HS 04/09/18 [History] Buspirone HCl [Buspar] 15 mg PO QID 04/09/18 [History] Cholecalciferol (D-3) [Vitamin D] 2,000 unit PO DAILY 04/09/18 [History] DULoxetine [Cymbalta] 60 mg PO DAILY 04/09/18 [History] Ezetimibe 10 mg PO DAILY 04/09/18 [History] Ferrous Sulfate [Iron] 325 mg PO BID 04/09/18 [History] Insulin Glargine,Hum.rec.anlog [Basaglar Kwikpen U-100] 10 unit SQ HS 04/09/18 [ History] Levothyroxine Sodium [Levoxyl] 200 mcg PO DAILY 04/09/18 [History] Metformin HCl [Metformin HCl ER] 500 mg PO QID 04/09/18 [History] Neomycin Sulfate 500 mg PO WEFR 04/09/18 [History] Potassium Citrate [Urocit-K] 20 meq PO BID 04/09/18 [History] Pregabalin [Lyrica] 200 mg PO TID 04/09/18 [History] Flunisolide 2 spr NS BID 05/07/18 [History] Insulin LISPRO [HumaLOG] 0 units SQ Q6HR vial 05/07/18 [Rx] OxyCODONE Immed Rel [Roxicodone 5 MG] 5 mg PO Q12HR 05/07/18 [History] Zolmitriptan [Zomig] 5 mg PO DAILY PRN 05/07/18 [History] hydroCHLOROthiazide [Hydrochlorothiazide] 12.5 mg PO DAILY 05/07/18 [History] 3 Allergy/AdvReac Type Severity Reaction Status Date / Time acetaminophen [From Tylenol] Allergy See Verified 04/09/18 08:52 Comments cephalexin Allergy See Verified 04/09/18 08:52 Comments ciprofloxacin [From Cipro] Allergy See Verified 04/09/18 08:52 Comments levofloxacin Allergy See Verified 04/09/18 08:52 Comments nitrofurantoin Allergy See Verified 04/09/18 08:52 Comments NSAIDS (Non-Steroidal Allergy See Verified 04/09/18 08:52 Anti-Inflamma Comments Penicillins Allergy See Verified 04/09/18 08:52 Comments IV CONTRAST Allergy See Uncoded 08/23/15 16:57 Comments TRIPONS Allergy See Uncoded 08/23/15 16:57 Comments All Systems PM: A 10-system review of systems was performed and is negative for pertinent findings except as documented above in the HPI. Review of systems: 10 point review of systems is obtained and is otherwise negative other than described in history of present illness - Constitutional Vitals: Temp Pulse Resp BP Pulse Ox 98.8 F 92 16 115/75 93 05/16/18 15:50 05/16/18 15:50 05/16/18 15:50 05/16/18 15:50 05/16/18 15:50 Exam: Constitutional: No acute distress, Alert, non toxic, lying comfotably in bed Psych: AAO x 3 HEENT: NCAT, EOMI Neck: supple, no JVD Cardio: tachycardic +s1s2, no murmurs/rubs/gallops, no JVD Resp: clear to ascultation bilaterally Abd: soft, mild left flank tenderness, no guarding rebound or rigidity Extremities: no clubbing/cyanosis/edema appreciated Neuro: no focal deficits appreciated Lymph: no cervical/supraclavicular adenopahty apprecitated - Assessment and plan (1) SIRS (systemic inflammatory response syndrome) Current Visit: Yes Status: Acute Assessment and plan: Patient presented with leukocytosis reported to be 20,000 on outpatient labs and 18,000 at outside facility emergency department -Also with tachycardia of 123 upon presentation to emergency department -Patient reports long-standing history of tachycardia however usually not this high -Patient denies any fevers at home -Patient admits to worsening flank pain and worsening pain with urination -Leukocytosis may be reactive secondary to ureteral stent put in combination with tachycardia and flank pain and worsening dysuria; will rule out pyelonephritis and recurrent nephrolithiasis with CT scan -Blood cultures ordered and urinalysis with reflex culture if indicated ordered (2) Flank pain Current Visit: Yes Status: Acute Assessment and plan: Patient with left flank pain since recent ureteral stent placement on [address] Sarkar. -flank pain to be expected but recent worsening of pain -rule out recurrent nephrolithiasis and pyelonephritis -Obtain CT of the abdomen without contrast -We will consult urology if necessary based on imaging studies -Obtain urine analysis and blood cultures -Continue IV Levaquin that was started at outside facility -Would like to avoid fluoroquinolone but patient has multiple allergies, will discontinue if urinalysis unremarkable and imaging not concerning for pyelonephritis (3) Nephrolithiasis Current Visit: No Status: Acute Assessment and plan: Hx of nephrolithiasis -recent uretal stent placment on 05/[address] Sarkar -worsening flank pain -order CT to eval for pyelonephritis and recurrent nephrolithiasis (4) HTN (hypertension) Current Visit: Yes Status: Acute Assessment and plan: BP Stable -continue home meds Qualifiers: Hypertension type: essential hypertension Qualified Code(s): I10 - Essential (primary) hypertension (5) Diabetes Current Visit: Yes Status: Acute Assessment and plan: DM type II -was on insulin but recently taken off -on metformin -low dose sliding scale -monitor accuchecks Qualifiers: Diabetes mellitus type: type 2 Diabetes mellitus intermodal truck driver insulin use: without intermodal truck driver use Diabetes mellitus complication status: with neurologic complications Diabetes mellitus complication detail: with polyneuropathy Qualified Code(s): E11.42 - Type 2 diabetes mellitus with diabetic polyneuropathy (6) DVT prophylaxis Current Visit: Yes Status: Acute Assessment and plan: hep sub q - Time Spent With Patient Total time spent is greater than 50% in coordination of care (as documented) at patient's floor/unit and/or counseling patient: Greater than 35 minutes
[2018-05-16] MEDS: Insulin LISPRO 300 UNITS/3 ML VIAL SQ SCH ×2 (17:58→20:35)
[2018-05-16] MEDS: *HR* Heparin 5,000 UNIT/ML VIAL SQ SCH (18:06)
[2018-05-16] MEDS: *HR* OxyCODONE Immed Rel 5 MG TABLET PO SCH (18:06)
[2018-05-16] MEDS: 0.9 % Sodium Chloride 1,000 ML IVC SCH (18:09)
[2018-05-16 18:10] LABS: Basophils # 0.1 K/mcL (0.0-0.2); Basophils % 0.4 %; Eosinophils # 0.3 K/mcL (0.0-0.6); Eosinophils % 2.4 %; Hematocrit 47.6 % (35.3-44.9); Immature Granulocytes % 0.5 % (0-4); Mean Corpuscular Hemoglobin 29.6 pg (28.0-33.3); Mean Corpuscular Volume 89.8 fL (83.0-100.0); Mean Platelet Volume 9.3 fL (9.4-12.4); Monocytes % 6.7 %; Neutrophils # 9.8 K/mcL (1.6-8.9); Platelet Count 299 K/mcL (140-400); Red Cell Distribution Width 15.9 % (11.5-14.5)
[2018-05-16 18:26] LABS: BUN/Creatinine Ratio 17 (6-26); Blood Urea Nitrogen 11 mg/dL (6-20); Calcium 9.2 mg/dL (8.6-10.3); Carbon Dioxide 20 mEq/L (23-29); Chloride 106 mEq/L (98-107); Glucose 89 mg/dL (70-105); Osmolality,Calculated 283 (280-300); Potassium 3.5 mEq/L (3.5-5.1); Sodium 137 mEq/L (136-145); eGFR For Non-African Americans > 60 (> 60)
--- NOTE | 2018-05-16 18:41 | Event Note ---
Date of Encounter: 05/16/18 Time of Encounter: 18:40 CT of the abdomen revealed pneumobilia. Patient nontoxic appearing. We will consult GI. Patient denies any recent history of upper endoscopy or ERCP or gallbladder surgery.
[2018-05-16 18:42] LABS: Hemoglobin 15.7 g/dL (11.5-15.4)
[2018-05-16 19:42] LABS: Bilirubin,Urine Negative (Negative); Blood,Urine Large (Negative); Clarity,Urine Cloudy (Clear); Color,Urine Yellow (Yellow); Glucose,Urine (UA) Normal (Normal); Ketones,Urine Trace mg/dL (Negative); Leukocyte Esterase,Urine Large (Negative); Nitrite,Urine Negative (Negative); PH,Urine 6.5 pH Units (5.0-8.0); Protein,Urine 100 mg/dL (Neg-Trace); Specific Gravity,Urine 1.009 (1.010-1.025); Urobilinogen,Urine Normal (Normal)
[2018-05-16 19:46] LABS: Bacteria,Urine None Seen per hpf (None-Few); Hyaline Casts,Urine None Seen per lpf (None-Few); RBC,Urine 15-30 per hpf (0-3); Squamous Epithelial Cell,Urine Many per lpf (None-Few); WBC,Urine TNTC per hpf (0-3)
[2018-05-16] MEDS: Pregabalin 50 MG CAPSULE PO SCH (20:26)
[2018-05-16] MEDS: Fluticasone Propionate Nasal 50 MCG/SPRAY BOTTLE NS SCH (20:30)
[2018-05-17] MEDS ORDERED: *HR* OxyCODONE Immed Rel 5 MG TABLET PO ONE (02:46)
[2018-05-17 03:09] LABS: Basophils # 0.1 K/mcL (0.0-0.2); Basophils % 0.5 %; Eosinophils # 0.4 K/mcL (0.0-0.6); Eosinophils % 3.2 %; Hematocrit 40.3 % (35.3-44.9); Immature Granulocytes % 0.4 % (0-4); Immature Platelets 2.5 % (1.1-6.1); Lymphocytes % 26.6 %; Mean Corpuscular HGB Conc 33.3 g/dL (31.6-35.5); Mean Corpuscular Hemoglobin 29.8 pg (28.0-33.3); Mean Corpuscular Volume 89.6 fL (83.0-100.0); Mean Platelet Volume 9.2 fL (9.4-12.4); Monocytes # 0.9 K/mcL (0.0-1.3); Monocytes % 8.1 %; Neutrophils # 6.8 K/mcL (1.6-8.9); Platelet Count 244 K/mcL (140-400); Red Cell Distribution Width 15.9 % (11.5-14.5); Segmented Neutrophils % 61.2 %
[2018-05-17 03:28] LABS: Hemoglobin 13.4 g/dL (11.5-15.4)
[2018-05-17 03:31] LABS: Albumin 3.3 g/dL (3.5-5.7); Albumin/Globulin Ratio 1.2 (1.1-2.2); BUN/Creatinine Ratio 18 (6-26); Bilirubin,Direct 0.2 mg/dL (0.0-0.2); Bilirubin,Indirect 0.5 mg/dL (0.0-1.2); Bilirubin,Total 0.7 mg/dL (0.3-1.0); Blood Urea Nitrogen 12 mg/dL (6-20); Calcium 8.6 mg/dL (8.6-10.3); Carbon Dioxide 19 mEq/L (23-29); Chloride 111 mEq/L (98-107); Globulin 2.7 g/dL (2.4-3.5); Glucose 114 mg/dL (70-105); Osmolality,Calculated 283 (280-300); Potassium 3.2 mEq/L (3.5-5.1); Sodium 136 mEq/L (136-145); eGFR For Non-African Americans > 60 (> 60)
[2018-05-17 03:32] LABS: Alanine Aminotransferase 20 Units/L (7-52); Albumin 3.3 g/dL (3.5-5.7); Albumin/Globulin Ratio 1.2 (1.1-2.2); Alkaline Phosphatase 88 Units/L (34-104); Aspartate Amino Transferase 12 Units/L (13-39); BUN/Creatinine Ratio 18 (6-26); Bilirubin,Total 0.7 mg/dL (0.3-1.0); Blood Urea Nitrogen 12 mg/dL (6-20); Calcium 8.5 mg/dL (8.6-10.3); Carbon Dioxide 19 mEq/L (23-29); Chloride 114 mEq/L (98-107); Globulin 2.7 g/dL (2.4-3.5); Glucose 113 mg/dL (70-105); Osmolality,Calculated 279 (280-300); Potassium 3.2 mEq/L (3.5-5.1); Sodium 134 mEq/L (136-145); eGFR For Non-African Americans > 60 (> 60)
[2018-05-17] MEDS: *HR* Heparin 5,000 UNIT/ML VIAL SQ SCH ×2 (05:36→17:20)
[2018-05-17] MEDS: *HR* OxyCODONE Immed Rel 5 MG TABLET PO SCH (05:36)
[2018-05-17] MEDS: 0.9 % Sodium Chloride 1,000 ML IVC SCH (08:26)
[2018-05-17] MEDS: Levofloxacin 750 MG/150 ML 750 MG/150 ML BAG IVPB SCH (08:27)
[2018-05-17] MEDS: Insulin LISPRO 300 UNITS/3 ML VIAL SQ SCH ×4 (08:27→20:56)
[2018-05-17] MEDS: Aspirin Enteric Coated 81 MG Tablet PO SCH (08:30)
[2018-05-17] MEDS: hydroCHLOROthiazide 25 MG TABLET PO SCH (08:31)
[2018-05-17] MEDS: Pregabalin 50 MG CAPSULE PO SCH ×3 (08:31→20:55)
[2018-05-17] MEDS: Fluticasone Propionate Nasal 50 MCG/SPRAY BOTTLE NS SCH ×2 (08:33→20:56)
--- NOTE | 2018-05-17 10:28 | Gastroenterology Consult Note ---
<AlvinRomero matute - Last Filed: 05/17/18 13:56> Date of Encounter: 05/17/18 Time of Encounter: 10:26 - Assessment and plan (1) Pneumobilia Current Visit: Yes Status: Acute Assessment and plan: CT scan of the abdomen and pelvis demonstrated left-sided pneumobilia - Patient denies any recent history of upper endoscopy, ERCP, or gallbladder surgery - Causes unknown at this time; will rule out sphincterotomy Plan: - Will perform RUQ U/S; if negative, will perform EGD - Currently on IV fluids at 75 mL/h - Levaquin 750 IV daily - Oxycodone for pain control (2) SIRS (systemic inflammatory response syndrome) Current Visit: Yes Status: Acute Assessment and plan: Initially presented with leukocytosis and tachycardia - Presented with worsening flank pain and pain with urination - CT scan showed no signs of infection - Blood cultures have been ordered 2 and are currently pending (3) HTN (hypertension) Current Visit: Yes Status: Acute Assessment and plan: Management per primary team Qualifiers: Hypertension type: essential hypertension Qualified Code(s): I10 - Essential (primary) hypertension (4) Diabetes Current Visit: Yes Status: Acute Assessment and plan: Management per primary team Qualifiers: Diabetes mellitus type: type 2 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 Bravo is a 57-year-old female with a PMH of DM, HTN who presented on 05/16 after being sent in for leukocytosis that was discovered in the outpatient setting. Labs were ordered by primary care physician. Patient reported left- sided flank pain and tachycardia upon presentation. She recently had a ureter stent placed by Dr. Sarkar on 05/07. Patient reported discomfort in the left flank. She reported that this pain has worsened, and that it is worse with urination. She first presented to [place] emergency department, where she was found to be tachycardic in the 120s. Patient was given IV fluids and was given 1 dose of Levaquin, and then transferred to [facility]. Patient denied having any chest pain, shortness of breath, nausea, vomiting, or diarrhea. Abdomen/pelvis CT demonstrated the following: Left-sided nephroureteral stent. Left-sided pneumobilia. Medullary nephrocalcinosis. Patient denies any recent history of upper endoscopy, ERCP, or gallbladder surgery. Blood cultures 2 have been ordered and are currently pending. Initial white count of 14.3; has since come down to 11.2. Today, she endorses some RUQ tenderness with palpation, but denies nausea, vomiting, fever, or chills. No further complaints. Past Med Surg Social Fam HX - Past Medical History Medical history: diabetes, hypertension Psychiatric history: depression - Past Surgical History Surgical History: appendectomy, hysterectomy Additional surgical history: Left knee replacement, carpal tunnel hernia repair - Social History Smoking Status: Never smoker Smokeless Tobacco Status: No Alcohol use: none Drug use: none - Constitutional Vitals: Temp Pulse Resp BP Pulse Ox 97.6 F 73 14 94/63 92 05/17/18 04:35 05/17/18 04:35 05/17/18 04:35 05/17/18 04:35 05/17/18 04:35 - Other Additional findings: Constitutional: No acute distress Neck: Supple, no JVD Cardiac: RRR, S1, S2, no murmurs, rubs, or gallops Respiratory: CTAB; no wheezes, rales, or rhochi Abdominal: soft, nondistended, mild L flank tenderness, mild RUQ pain Extremities: no clubbing or cyanosis Results - Labs CBC & Chem 7: 05/17/18 02:49 05/17/18 02:49 Labs: Last Result Calcium 8.5 mg/dL (8.6-10.3) L 05/17/18 02:49 Entire Visit Hgb 13.4 g/dL (11.5-15.4) D 05/17/18 02:49 Hct 40.3 % (35.3-44.9) 05/17/18 02:49 Total Bilirubin 0.7 mg/dL (0.3-1.0) 05/17/18 02:49 AST 12 Units/L (13-39) L 05/17/18 02:49 ALT 20 Units/L (7-52) 05/17/18 02:49 - Impressions Impressions Abdomen/Pelvis CT 05/16/18 17:24 IMPRESSION: 1. Left nephroureteral stent in place. No perinephric edema is identified. 2. New since previous CT is left-sided pneumobilia. Please correlate for any recent biliary intervention; correlation for previous sphincterotomy is suggested. In absence of previous biliary intervention, an infectious process must be considered. 3. Medullary nephrocalcinosis. 4. Prominent pre aortic lymph node at the level of the kidneys of uncertain clinical significance. This could be followed up with a scan in 3-6 months to confirm stability. D/ / Rajinder Castaneda / Rajinder Castaneda Interpreting Provider: Rajinder Castaneda Consult Discharge Plan - Plan Referrals: Tila Quezada MD [Primary Care Provider] - <Julio Jefferson - Last Filed: 05/17/18 16:53> Date of Encounter: 05/17/18 Time of Encounter: 13:00 - Time Spent With Patient Total time spent is greater than 50% in coordination of care (as documented) at patient's floor/unit and/or counseling patient: GI History of Present Illness - Data of Consult Requesting Physician: Jt Lord DO - Consult Narrative History of present illness: Ms. Bravo is a 57 year old female - Constitutional Vitals: Temp Pulse Resp BP Pulse Ox 97.6 F 86 16 97/63 94 05/17/18 15:23 05/17/18 15:23 05/17/18 15:23 05/17/18 15:23 05/17/18 15:23 Results - Labs CBC & Chem 7: 05/17/18 02:49 05/17/18 02:49 Labs: Last Result Calcium 8.5 mg/dL (8.6-10.3) L 05/17/18 02:49 Entire Visit Hgb 13.4 g/dL (11.5-15.4) D 05/17/18 02:49 Hct 40.3 % (35.3-44.9) 05/17/18 02:49 Total Bilirubin 0.7 mg/dL (0.3-1.0) 05/17/18 02:49 AST 12 Units/L (13-39) L 05/17/18 02:49 ALT 20 Units/L (7-52) 05/17/18 02:49 - Impressions Impressions Abdomen/Pelvis CT 05/16/18 17:24 IMPRESSION: 1. Left nephroureteral stent in place. No perinephric edema is identified. 2. New since previous CT is left-sided pneumobilia. Please correlate for any recent biliary intervention; correlation for previous sphincterotomy is suggested. In absence of previous biliary intervention, an infectious process must be considered. 3. Medullary nephrocalcinosis. 4. Prominent pre aortic lymph node at the level of the kidneys of uncertain clinical significance. This could be followed up with a scan in 3-6 months to confirm stability. D/ / Rajinder Castaneda / Rajinder Castaneda Interpreting Provider: Rajinder Castaneda - Attending Attestation I examined this patient and my medical decision-making was reviewed with the Resident Physician. I agree with the documented findings, disposition and treatment plan as described except to the extent set forth below. Pt seen with Dr Esquivel. Pt deniesabd pain. O/E RUQ tanderness. A: Pt with pneumobilia and tander RUQ Rec: GB US if negative then EGD
[2018-05-17] MEDS: *HR* OxyCODONE Immed Rel 5 MG TABLET PO PRN ×2 (11:37→19:45)
--- NOTE | 2018-05-17 12:16 | Internal Med Progress Note ---
Hospitalist Progress Note - Encounter Date of Encounter: 05/17/18 Time of Encounter: 12:14 - Subjective Interval History: Patient seen and examined at bedside. Patient no acute overnight events. Patient given note from yesterday. Patient found to have pneumobilia on CT scan and GI consult. Awaiting consultation. patient states that she feels a little improved overall. Continues to have some left flank pain. CT of the abdomen revealed no perinephric stranding and urinalysis was contaminated. Urinalysis reviewed from hospital not concerning for urinary tract infection. Leukocytosis is improving from 18 to 11.2. She denies chest pain, shortness of breath, nausea, vomiting, diarrhea. Admits to continued mild left flank pain. - Exam Vitals: Temp Pulse Resp BP Pulse Ox 97.8 F 80 16 97/61 94 05/17/18 11:49 05/17/18 11:49 05/17/18 11:49 05/17/18 11:49 05/17/18 11:49 Exam: Constitutional: No acute distress, Alert, non toxic, lying comfotably in bed Psych: AAO x 3 HEENT: NCAT Neck: supple, no JVD Cardio: Regular rate and rhythm +s1s2, no murmurs/rubs/gallops, no JVD Resp: clear to ascultation bilaterally Abd: soft, mild left flank tenderness, mild discomfort over the right upper quadrant negative Stout sign Extremities: no clubbing/cyanosis/edema appreciated - Assessment and Plan (1) SIRS (systemic inflammatory response syndrome) Current Visit: Yes Status: Acute Assessment and Plan: Patient presented with leukocytosis reported to be 20,000 on outpatient labs and 18,000 at outside facility emergency department and down to 11.2K today -Also with tachycardia of 123 upon presentation to emergency department which has since resolved -Patient reports long-standing history of tachycardia however usually not this high; she reports around 100 -Patient denies any fevers at home -Patient admits to worsening flank pain and worsening pain with urination; still having some discomfort but likely secondary to stent -Leukocytosis may be reactive secondary to ureteral stent but improved with IV fluids and ABX; unclear if any correlation with pneumobilia -CT abd revealed no perinephric stranding that was significant for pneumobilia, patient denies any surgical intervention explain pneumobilia -GI consult to evaluate recommendations -Blood cultures negative to date; UA contaminated but ua from outside ER not concerning for infection (2) Pneumobilia Current Visit: Yes Status: Acute Assessment and Plan: Found incidentally on CT of abdomen -unclear etiology -Pt denies any recent surgical intervention for endoscopy -Unclear if this has any infectious component contributing to leukocytosis -GI consult to evaluate; awaiting recommendations -Continue IV Levaquin in light of improving leukocytosis and tachycardia (3) Flank pain Current Visit: Yes Status: Acute Assessment and Plan: Patient with left flank pain since recent ureteral stent placement on [address] Sarkar. -flank pain to be expected but recent worsening of pain -CT abd revealed pneumobilia and no evidence of perinephric stranding or nephrolilitaisis and adequate stent placement -follow cultures; outside UA not concerning; UA here contaminated -Continue IV Levaquin that was started at outside facility -Continue antibiotics in light of improving heart rate and leukocytosis (4) Nephrolithiasis Current Visit: No Status: Acute Assessment and Plan: Hx of nephrolithiasis -recent uretal stent placment on 05/[address] Sarkar -worsening flank pain -CT did not reveal and further nephrolitithiasis (5) HTN (hypertension) Current Visit: Yes Status: Acute Assessment and Plan: BP Stable -continue home meds (6) Diabetes Current Visit: Yes Status: Acute Assessment and Plan: DM type II -was on insulin but recently taken off -on metformin -low dose sliding scale -monitor accuchecks (7) DVT prophylaxis Current Visit: Yes Status: Acute Assessment and Plan: hep sub q - Time Spent with Patient Total time spent is greater than 50% in coordination of care (as documented) at patient's floor/unit and/or counseling patient: 25 - 35 minutes Plan of Care Discussed with: patient Internal Medicine: Result - Labs CBC & Chem 7: 05/17/18 02:49 05/17/18 02:49 Labs: Short CBC 05/16/18 05/17/18 Range/Units 17:41 02:49 WBC 14.3 H 11.2 H (4.3-11.1) K/mcL Hgb 15.7 H D 13.4 D (11.5-15.4) g/dL Hct 47.6 H 40.3 (35.3-44.9) % Plt Count 299 244 (140-400) K/mcL Neutrophils # 9.8 H 6.8 (1.6-8.9) K/mcL BMP 05/16/18 05/17/18 05/17/18 17:41 02:49 02:49 Sodium 137 136 134 L Potassium 3.5 3.2 L 3.2 L Chloride 106 111 H 114 H Carbon Dioxide 20 L 19 L 19 L BUN 11 12 12 Creatinine 0.64 0.66 0.65 Glucose 89 114 H 113 H Calcium 9.2 8.6 8.5 L Liver Function 05/17/18 05/17/18 Range/Units 02:49 02:49 Total Bilirubin 0.7 0.7 (0.3-1.0) mg/dL Direct Bilirubin 0.2 (0.0-0.2) mg/dL AST 13 12 L (13-39) Units/L ALT 21 20 (7-52) Units/L Alkaline Phosphatase 88 88 (34-104) Units/L Albumin 3.3 L 3.3 L (3.5-5.7) g/dL Urine 05/16/18 Range/Units 19:31 Urine Color Yellow (Yellow) Urine Clarity Cloudy A (Clear) Urine pH 6.5 (5.0-8.0) pH Units Ur Specific [place] 1.009 L (1.010-1.025) Urine Protein 100 H (Neg-Trace) mg/dL Urine Glucose (UA) Normal (Normal) mg/dL - Impressions Impressions Abdomen/Pelvis CT 05/16/18 17:24 IMPRESSION: 1. Left nephroureteral stent in place. No perinephric edema is identified. 2. New since previous CT is left-sided pneumobilia. Please correlate for any recent biliary intervention; correlation for previous sphincterotomy is suggested. In absence of previous biliary intervention, an infectious process must be considered. 3. Medullary nephrocalcinosis. 4. Prominent pre aortic lymph node at the level of the kidneys of uncertain clinical significance. This could be followed up with a scan in 3-6 months to confirm stability. D/ / Rajinder Castaneda / Rajinder Castaneda Interpreting Provider: Rajinder Castaneda Consult Discharge Plan - Plan Referrals: Tila Quezada MD [Primary Care Provider] - (5) HTN (hypertension) Qualifiers: Hypertension type: essential hypertension Qualified Code(s): I10 - Essential (primary) hypertension (6) Diabetes Qualifiers: Diabetes mellitus type: type 2 Diabetes mellitus mcc insulin use: without emt intermediate use Diabetes mellitus complication status: with neurologic complications Diabetes mellitus complication detail: with polyneuropathy Qualified Code(s): E11.42 - Type 2 diabetes mellitus with diabetic polyneuropathy
[2018-05-18] MEDS: *HR* OxyCODONE Immed Rel 5 MG TABLET PO PRN ×3 (03:54→21:36)
[2018-05-18 04:16] LABS: Basophils # 0.1 K/mcL (0.0-0.2); Basophils % 0.5 %; Eosinophils # 0.3 K/mcL (0.0-0.6); Eosinophils % 3.2 %; Immature Granulocytes % 0.4 % (0-4); Lymphocytes # 2.6 K/mcL (0.6-4.6); Lymphocytes % 28.1 %; Mean Corpuscular HGB Conc 32.4 g/dL (31.6-35.5); Mean Corpuscular Hemoglobin 29.4 pg (28.0-33.3); Mean Corpuscular Volume 90.7 fL (83.0-100.0); Mean Platelet Volume 9.6 fL (9.4-12.4); Monocytes # 0.7 K/mcL (0.0-1.3); Monocytes % 7.4 %; Neutrophils # 5.6 K/mcL (1.6-8.9); Platelet Count 201 K/mcL (140-400); Red Blood Count 4.08 M/mcL (3.82-4.97); Red Cell Distribution Width 15.8 % (11.5-14.5); Segmented Neutrophils % 60.4 %
[2018-05-18 04:48] LABS: BUN/Creatinine Ratio 18 (6-26); Blood Urea Nitrogen 12 mg/dL (6-20); Calcium 8.7 mg/dL (8.6-10.3); Carbon Dioxide 19 mEq/L (23-29); Chloride 116 mEq/L (98-107); Glucose 128 mg/dL (70-105); Osmolality,Calculated 301 (280-300); Potassium 3.3 mEq/L (3.5-5.1); Sodium 145 mEq/L (136-145); eGFR For Non-African Americans > 60 (> 60)
[2018-05-18] MEDS: *HR* Heparin 5,000 UNIT/ML VIAL SQ SCH ×2 (05:35→17:42)
[2018-05-18] MEDS: Insulin LISPRO 300 UNITS/3 ML VIAL SQ SCH ×4 (07:34→20:11)
[2018-05-18] MEDS: Pregabalin 50 MG CAPSULE PO SCH ×3 (08:45→20:03)
[2018-05-18] MEDS: Aspirin Enteric Coated 81 MG Tablet PO SCH (08:45)
[2018-05-18] MEDS: hydroCHLOROthiazide 25 MG TABLET PO SCH (08:45)
[2018-05-18] MEDS: Fluticasone Propionate Nasal 50 MCG/SPRAY BOTTLE NS SCH ×2 (08:45→20:11)
[2018-05-18] MEDS: Levofloxacin 750 MG/150 ML 750 MG/150 ML BAG IVPB SCH (08:46)
--- NOTE | 2018-05-18 09:22 | Internal Med Progress Note ---
Hospitalist Progress Note - Encounter Date of Encounter: 05/18/18 Time of Encounter: 09:19 - Subjective Interval History: Patient seen and examined at bedside. Patient no acute overnight events. Patient states that she feels improved today. Patient does have some occasional right upper quadrant tenderness as noted by GI note. GI ordered a gallbladder ultrasound which revealed gallbladder wall thickening but no other signs of cholecystitis. Patient will be taken for EGD today for evaluation of pneumobilia. Patient's leukocytosis continues to improve and is normal today and tachycardia is resolved. Patient denies any chest pain, shortness breath, nausea, vomiting, diarrhea. Patient states that her flank pain is improved and continues to have a small amount of pain with urination but this is improved as well. - Exam Vitals: Temp Pulse Resp BP Pulse Ox 97.5 F L 69 16 108/76 94 05/18/18 07:55 05/18/18 07:55 05/18/18 07:55 05/18/18 07:55 05/18/18 07:55 Exam: Constitutional: No acute distress, Alert, non toxic Psych: AAO x 3 HEENT: NCAT Neck: supple, no JVD Cardio: Regular rate and rhythm +s1s2, no murmurs Resp: clear to ascultation bilaterally Abd: soft, no flank tenderness, mild discomfort over the right upper quadrant Extremities: no clubbing/cyanosis/edema appreciated - Assessment and Plan (1) SIRS (systemic inflammatory response syndrome) Current Visit: Yes Status: Acute Assessment and Plan: Patient presented with leukocytosis reported to be 20,000 on outpatient labs and 18,000 at outside facility emergency department and down to 9.4 today -Also with tachycardia of 123 upon presentation to emergency department which has since resolved -Patient reports long-standing history of tachycardia however usually not this high; she reports around 100 -Patient denies any fevers at home -Patient admits to worsening flank pain and worsening pain with urination; still having some discomfort but likely secondary to stent -Leukocytosis may be reactive secondary to ureteral stent but improved with IV fluids and ABX; unclear if any correlation with pneumobilia -CT abd revealed no perinephric stranding that was significant for pneumobilia, patient denies any surgical intervention explain pneumobilia -Blood cultures negative to date; UA contaminated but ua from outside ER not concerning for infection -GB US with wall thickening but no signs of cholecystitis -Unclear of what antibiotics are treating but will continue emprically due to clinical inprovment; will transition to oral at [place] and continue for 7 total days (2) Pneumobilia Current Visit: Yes Status: Acute Assessment and Plan: Found incidentally on CT of abdomen -unclear etiology -Pt denies any recent surgical intervention for endoscopy -Unclear if this has any infectious component contributing to leukocytosis -GI following; having EGD today -Continue IV Levaquin in light of improving leukocytosis and tachycardia (3) Flank pain Current Visit: Yes Status: Acute Assessment and Plan: Patient with left flank pain since recent ureteral stent placement on [address] Sarkar. -flank pain to be expected but recent worsening of pain; improved now -CT abd revealed pneumobilia and no evidence of perinephric stranding or nephrolilitaisis and adequate stent placement -follow cultures; outside UA not concerning; UA here contaminated -Continue IV Levaquin -Continue antibiotics in light of improving heart rate and leukocytosis -f/u with urology for stent removal next week at scheduled appt (4) Nephrolithiasis Current Visit: No Status: Acute Assessment and Plan: Hx of nephrolithiasis -recent uretal stent placment on 05/[address] Sarkar -worsening flank pain improved now -CT did not reveal and further nephrolitithiasis (5) HTN (hypertension) Current Visit: Yes Status: Acute Assessment and Plan: BP Stable -continue home meds (6) Diabetes Current Visit: Yes Status: Acute Assessment and Plan: DM type II -was on insulin but recently taken off -on metformin -low dose sliding scale -monitor accuchecks (7) DVT prophylaxis Current Visit: Yes Status: Acute Assessment and Plan: hep sub q DVT Prophylaxis: hep sq - Summary of Assessment and Plan Summary of Assessment and Plan: EGD today; leukocytosis and tachycardia have resolved with antibiotics and fluids, fluids have been stopped. Unsure of what I am treating with antibiotics but in light of clinical improvement we will continue likely for 7 total days as outpatient. We will follow GI recs and possibly discharge home later today after EGD if okay with GI. - Time Spent with Patient Total time spent is greater than 50% in coordination of care (as documented) at patient's floor/unit and/or counseling patient: 25 - 35 minutes Plan of Care Discussed with: patient Internal Medicine: Result - Labs CBC & Chem 7: 05/18/18 03:39 05/18/18 03:39 Labs: Short CBC 05/18/18 Range/Units 03:39 WBC 9.4 (4.3-11.1) K/mcL Hgb 12.0 (11.5-15.4) g/dL Hct 37.0 (35.3-44.9) % Plt Count 201 (140-400) K/mcL Neutrophils # 5.6 (1.6-8.9) K/mcL BMP 05/18/18 03:39 Sodium 145 Potassium 3.3 L Chloride 116 H Carbon Dioxide 19 L BUN 12 Creatinine 0.66 Glucose 128 H Calcium 8.7 - Impressions Impressions Gallbladder Ultrasound 05/17/18 20:00 IMPRESSION: Gallbladder wall thickening. While this can be a finding of acute cholecystitis, this is considered less likely in the absence of gallbladder distention. Other differential considerations for this finding include portal hypertension/volume overload and acute hepatitis. Medullary nephrocalcinosis. D/ / Reji Siddiqui MD / Reji Siddiqui MD Interpreting Provider: Reji Siddiqui MD Consult Discharge Plan - Plan Referrals: Tila Quezada MD [Primary Care Provider] - (5) HTN (hypertension) Qualifiers: Hypertension type: essential hypertension Qualified Code(s): I10 - Essential (primary) hypertension (6) Diabetes Qualifiers: Diabetes mellitus type: type 2 Diabetes mellitus prison insulin use: without prison use Diabetes mellitus complication status: with neurologic complications Diabetes mellitus complication detail: with polyneuropathy Qualified Code(s): E11.42 - Type 2 diabetes mellitus with diabetic polyneuropathy
[2018-05-18] MEDS ORDERED: *HR* Propofol 200 MG/20 ML VIAL IVP ONE (11:16)
[2018-05-18] MEDS ORDERED: Lidocaine -MPF 2% 2 ML VIAL ONE (11:16)
--- NOTE | 2018-05-18 11:17 | Anesthesia Evaluation PreOp ---
Date of Encounter: 05/18/18 Time of Encounter: 11:40 - Past History Planned Operation: EGD Cardiac History: HTN, Hyperlipidemia Pulmonary History: Denies Any Significant HX PROCESS CHECKER History: Denies Any Significant HX Other Medical History: Diabetes Type II Anesthesia History: No Prior Anesthetic Complications : No Alcohol Use: none Drug use: none Medications and Allergies Albuterol Sulfate [Albuterol Inhaler] 2 puff IH Q4H PRN 04/09/18 [History] Aspirin Enteric Coated [Aspirin EC] 81 mg PO DAILY 04/09/18 [History] Buspirone HCl [Buspar] 15 mg PO QID 04/09/18 [History] Cholecalciferol (D-3) [Vitamin D] 2,000 unit PO DAILY 04/09/18 [History] Ezetimibe 10 mg PO HS 04/09/18 [History] Ferrous Sulfate [Iron] 325 mg PO BID 04/09/18 [History] Levothyroxine Sodium [Levoxyl] 200 mcg PO DAILY 04/09/18 [History] Metformin HCl [Metformin HCl ER] 500 mg PO QID 04/09/18 [History] Neomycin Sulfate 500 mg PO WEFR 04/09/18 [History] Potassium Citrate [Urocit-K] 20 meq PO BID 04/09/18 [History] Pregabalin [Lyrica] 200 mg PO TID 04/09/18 [History] Flunisolide 2 spr NS BID 05/07/18 [History] OxyCODONE Immed Rel [Roxicodone 5 MG] 5 mg PO Q12HR 05/07/18 [History] Zolmitriptan [Zomig] 5 mg PO DAILY PRN 05/07/18 [History] hydroCHLOROthiazide [Hydrochlorothiazide] 12.5 mg PO DAILY 05/07/18 [History] Cholecalciferol (Vitamin D3) [Vitamin D] 2,000 unit PO 05/18/18 [History] Doxycycline Hyclate [Vibramycin] 100 mg PO BID 05/18/18 [History] 3 Allergy/AdvReac Type Severity Reaction Status Date / Time acetaminophen [From Tylenol] Allergy See Verified 04/09/18 08:52 Comments cephalexin Allergy See Verified 04/09/18 08:52 Comments ciprofloxacin [From Cipro] Allergy See Verified 04/09/18 08:52 Comments Erythromycin Base Allergy Hives Verified 05/18/18 04:45 nitrofurantoin Allergy See Verified 05/18/18 04:46 Comments NSAIDS (Non-Steroidal Allergy See Verified 04/09/18 08:52 Anti-Inflamma Comments Penicillins Allergy See Verified 04/09/18 08:52 Comments dichloralphenazone AdvReac Hypertensio Verified 05/18/18 04:45 [From Midrin] n Isometheptene [From Midrin] AdvReac Hypertensio Verified 05/18/18 04:45 n IV CONTRAST Allergy See Uncoded 08/23/15 16:57 Comments TRIPONS Allergy See Uncoded 08/23/15 16:57 Comments - Meds/Allergy Pre-op Review Medications Reviewed: Yes Allergies Reviewed: Yes Beta Blockers on Current Med List: No Anesthesia Results - Labs 05/18/18 03:39 05/18/18 03:39 Laboratory Tests 12/15/16 05/18/18 05/18/18 15:56 03:39 03:39 Hgb 12.0 Hct 37.0 Plt Count 201 Sodium 145 Potassium 3.3 L BUN 12 POC Creatinine 0.50 L Anesthesia Exam Vital Signs/O2 Sat/Glucose, Most Current Temp Pulse Resp BP Pulse Ox 05/18/18 07:55 97.5 F L 69 16 108/76 94 Height: 4'11 Weight: 149 lbs NPO (# of Hours): MN Pain Scale: 0 - HEENT Pupil (Motor): Pupils equal, EOMI Mallampati: II Teeth: Normal Oral Opening: Greater than 3 - PROCESS CHECKER LOC: Oriented PROCESS CHECKER Motor: Normal RUE, Normal LUE, Normal RLE, Normal LLE, Normal Face PROCESS CHECKER Sensory: Normal: RUE, LUE, RLE, LLE, Face - Cardiac Rhythm: Regular Murmur: None JVD: No Carotid Bruit: No - Pulmonary Breath Sounds: bilateral Clear Respiratory Effort: Symmetrical Anesthesia Assess/Plan ASA Score: 3 (HTN DM) Modified Scott Scale for Level of Consciousness: Cooperative, oriented, and tranquil Anesthetic Plan: MAC Monitoring Plan: Standard Monitors Recovery Plan: Other (Discussed MAC, agrees to proceed)
--- NOTE | 2018-05-18 13:04 | Anesthesia Evaluation Post Op ---
Date of Encounter: 05/18/18 Time of Encounter: 12:50 - Vital Signs Vital Signs: Vital Signs/O2 Sat/Glucose, Most Current Temp Pulse BP Pulse Ox 05/18/18 12:12 98.1 F 81 125/96 95 - Lungs Lungs: Clear Ascult./Percussion - Airway Airway: Non-obstructed - Cardiovascular Regular Rate - Mental Status Mental Status: Alert & Oriented, Answers Appropriately - Pain Pain Scale: 0 - Nausea Vomiting Nausea Vomiting: Not Present - Hydration Hydration: NPO - Discharge PostOp Status: Transfer Patient to floor
[2018-05-19] MEDS: *HR* Heparin 5,000 UNIT/ML VIAL SQ SCH ×2 (05:29→17:15)
[2018-05-19] MEDS: Insulin LISPRO 300 UNITS/3 ML VIAL SQ SCH ×4 (07:19→20:47)
[2018-05-19] MEDS: *HR* OxyCODONE Immed Rel 5 MG TABLET PO PRN ×2 (09:56→18:19)
[2018-05-19] MEDS: Aspirin Enteric Coated 81 MG Tablet PO SCH (09:56)
[2018-05-19] MEDS: Levofloxacin 750 MG/150 ML 750 MG/150 ML BAG IVPB SCH (09:57)
[2018-05-19] MEDS: hydroCHLOROthiazide 25 MG TABLET PO SCH (09:57)
[2018-05-19] MEDS: Pregabalin 50 MG CAPSULE PO SCH ×3 (09:57→20:11)
[2018-05-19] MEDS: Fluticasone Propionate Nasal 50 MCG/SPRAY BOTTLE NS SCH ×2 (09:58→20:12)
[2018-05-19 10:30] LABS: Alanine Aminotransferase 16 Units/L (7-52); Albumin 3.7 g/dL (3.5-5.7); Albumin/Globulin Ratio 1.3 (1.1-2.2); Alkaline Phosphatase 97 Units/L (34-104); Aspartate Amino Transferase 12 Units/L (13-39); BUN/Creatinine Ratio 18 (6-26); Bilirubin,Total 0.5 mg/dL (0.3-1.0); Blood Urea Nitrogen 11 mg/dL (6-20); Calcium 9.4 mg/dL (8.6-10.3); Carbon Dioxide 25 mEq/L (23-29); Chloride 108 mEq/L (98-107); Globulin 2.9 g/dL (2.4-3.5); Glucose 105 mg/dL (70-105); Magnesium 1.9 mg/dL (1.6-2.6); Osmolality,Calculated 290 (280-300); Potassium 3.8 mEq/L (3.5-5.1); Sodium 140 mEq/L (136-145); Total Protein 6.6 g/dL (6.4-8.9); eGFR For Non-African Americans > 60 (> 60)
--- NOTE | 2018-05-19 13:14 | Internal Med Progress Note ---
Hospitalist Progress Note - Encounter Date of Encounter: 05/19/18 Time of Encounter: 13:12 - Subjective Interval History: Patient seen and examined at bedside. Patient no acute overnight events. Pt states she continues to feel better. Continues to have some left flank pain and pain with urination but much improved. Had HIDA this am which was unremarkable. Denies any chest pain, shortness of breath, nausea, vomiting, diarrhea, fevers. - Exam Vitals: Temp Pulse Resp BP Pulse Ox 98.0 F 98 16 116/90 97 05/19/18 11:23 05/19/18 11:23 05/19/18 11:23 05/19/18 11:23 05/19/18 11:23 Exam: Constitutional: No acute distress Psych: AAO x 3 Neck: supple, no JVD Cardio: Regular rate and rhythm +s1s2, no murmurs Resp: clear to ascultation bilaterally Abd: soft, no flank tenderness, no RUQ tenderness today - Assessment and Plan (1) SIRS (systemic inflammatory response syndrome) Current Visit: Yes Status: Acute Assessment and Plan: Patient presented with leukocytosis reported to be 20,000 on outpatient labs and 18,000 at outside facility emergency department and down to 9.4 today -Also with tachycardia of 123 upon presentation to emergency department which has since resolved -Patient reports long-standing history of tachycardia however usually not this high; she reports around 100 -Patient denies any fevers at home -Patient admits to worsening flank pain and worsening pain with urination; still having some discomfort but likely secondary to stent -Leukocytosis may be reactive secondary to ureteral stent but improved with IV fluids and ABX; unclear if any correlation with pneumobilia; resolved -CT abd revealed no perinephric stranding but was significant for pneumobilia, patient denies any surgical intervention explain pneumobilia -Blood cultures negative to date; UA contaminated but ua from outside ER not concerning for infection -GB US with wall thickening but no signs of cholecystitis -HIDA unremarkable -Unclear of what antibiotics are treating but will continue emprically due to substantial clinical inprovment; will transition to oral at [place] and continue for 7 total days (2) Pneumobilia Current Visit: Yes Status: Acute Assessment and Plan: Found incidentally on CT of abdomen -unclear etiology -Pt denies any recent surgical intervention for endoscopy -Unclear if this has any infectious component contributing to leukocytosis; doubt it currently -GI following -EGD unremarkable per RN; HIDA unremarkable today -Continue IV Levaquin in light of rapid and substantial resolution of leukocytosis and tachycardia -follow up with GI as outpt (3) Flank pain Current Visit: Yes Status: Acute Assessment and Plan: Patient with left flank pain since recent ureteral stent placement on [address] Sarkar. -flank pain to be expected but recent worsening of pain; improved now -CT abd revealed pneumobilia and no evidence of perinephric stranding or nephrolilitaisis and adequate stent placement -follow cultures; outside UA not concerning; UA here contaminated -Continue IV Levaquin -Continue antibiotics in light rapid and substantial resolution of tachycardia and leukocytosis -f/u with urology for stent removal this week at scheduled appt (4) Nephrolithiasis Current Visit: No Status: Acute Assessment and Plan: Hx of nephrolithiasis -recent uretal stent placment on 05/[address] Sarkar -worsening flank pain improved now -CT did not reveal and further nephrolitithiasis -stent to be removed this Sunday outpt (5) HTN (hypertension) Current Visit: Yes Status: Acute Assessment and Plan: BP Stable -continue home meds (6) Diabetes Current Visit: Yes Status: Acute Assessment and Plan: DM type II -was on insulin but recently taken off -on metformin -low dose sliding scale -monitor accuchecks (7) DVT prophylaxis Current Visit: Yes Status: Acute Assessment and Plan: hep sub q DVT Prophylaxis: hep sq - Summary of Assessment and Plan Summary of Assessment and Plan: EGD and HIDA unremarkable -will emperically continue levaquin for total of 7 days due to substantial improvement/resolution of tachycardia and leukocytosis -will need to f/u with pcp within one week; recommend to recheck cbc one week after antibiotics to ensure leukocytosis is not returning -will need to f/u with gi outpaient -discharge in am as pt has not way to get home today - Time Spent with Patient Total time spent is greater than 50% in coordination of care (as documented) at patient's floor/unit and/or counseling patient: less than 15 minutes Plan of Care Discussed with: patient Internal Medicine: Result - Labs CBC & Chem 7: 05/18/18 03:39 05/19/18 10:02 Labs: BMP 05/19/18 10:02 Sodium 140 Potassium 3.8 Chloride 108 H Carbon Dioxide 25 BUN 11 Creatinine 0.60 Glucose 105 Calcium 9.4 Liver Function 05/19/18 Range/Units 10:02 Total Bilirubin 0.5 (0.3-1.0) mg/dL AST 12 L (13-39) Units/L ALT 16 (7-52) Units/L Alkaline Phosphatase 97 (34-104) Units/L Albumin 3.7 (3.5-5.7) g/dL - Impressions Impressions Liver Scan Nuclear Medicine 05/18/18 12:42 IMPRESSION: No convincing scintigraphic evidence of acute or chronic cholecystitis. D/ / 05/19/2018 10:40:35 Rojelio Fernandes MD / Hermila Ly Interpreting Provider: Rojelio Fernandes MD Consult Discharge Plan - Plan Referrals: Tila Quezada MD [Primary Care Provider] - (5) HTN (hypertension) Qualifiers: Hypertension type: essential hypertension Qualified Code(s): I10 - Essential (primary) hypertension (6) Diabetes Qualifiers: Diabetes mellitus type: type 2 Diabetes mellitus fpc insulin use: without fpc use Diabetes mellitus complication status: with neurologic complications Diabetes mellitus complication detail: with polyneuropathy Qualified Code(s): E11.42 - Type 2 diabetes mellitus with diabetic polyneuropathy
[2018-05-20] MEDS: *HR* OxyCODONE Immed Rel 5 MG TABLET PO PRN (02:32)
[2018-05-20] MEDS: *HR* Heparin 5,000 UNIT/ML VIAL SQ SCH (05:33)
[2018-05-20 06:43] VITALS: BP 110/82
[2018-05-20] MEDS: Levofloxacin 750 MG/150 ML 750 MG/150 ML BAG IVPB SCH (08:06)
[2018-05-20] MEDS: hydroCHLOROthiazide 25 MG TABLET PO SCH (08:07)
[2018-05-20] MEDS: Pregabalin 50 MG CAPSULE PO SCH (08:07)
[2018-05-20] MEDS: Aspirin Enteric Coated 81 MG Tablet PO SCH (08:08)
[2018-05-20] MEDS: Fluticasone Propionate Nasal 50 MCG/SPRAY BOTTLE NS SCH (08:08)
[2018-05-20] MEDS: Insulin LISPRO 300 UNITS/3 ML VIAL SQ SCH (08:09)
--- NOTE | 2018-05-20 09:02 | Discharge Summary ---
- NOTES TO OUTPATIENT PROVIDER Notes to Outpatient Provider: Patient incidentally found to have pneumobilia on imaging. GI performed EGD and HIDA scan which were unremarkable. Follow up outpatient with GI. Tachycardia and leukocytosis which rapidly improved with IV Levaquin. However due to unsure etiology of what it is treating this will be continued for 7 total days. Recommend rechecking cbc 1 week after completion of antibiotics Orders not resulted at time of discharge: Pending orders 05/16/18 17:41 Culture,Blood [BC] Stat 05/18/18 12:33 Surgical Pathology [PTH] Routine Date of Encounter: 05/20/18 Time of Encounter: 09:00 - Discharge Diagnosis (1) SIRS (systemic inflammatory response syndrome) Priority: Primary Status: Acute (2) Pneumobilia Priority: Secondary Status: Acute (3) Flank pain Priority: Secondary Status: Acute (4) Nephrolithiasis Priority: Secondary Status: Acute (5) HTN (hypertension) Priority: Secondary Status: Acute Qualifiers: Hypertension type: essential hypertension Qualified Code(s): I10 - Essential (primary) hypertension (6) Diabetes Priority: Secondary Status: Acute Qualifiers: Diabetes mellitus type: type 2 Diabetes mellitus longterm insulin use: without terminal makeup operator use Diabetes mellitus complication status: with neurologic complications Diabetes mellitus complication detail: with polyneuropathy Qualified Code(s): E11.42 - Type 2 diabetes mellitus with diabetic polyneuropathy (7) DVT prophylaxis Priority: Secondary Status: Acute Hospital course: Ms. Bravo is a 57 year old female presented for evaluation of leukocytosis on labs and was found to be tachycardic. The patient was empirically started on IV antibiotics. Urine analyais and imaging showed no pyelonephritis or urinary tract infection, however incidental pneumobilia was found. GI with consult who performed EGD and ordered HIDA scan, these were unremarkable. The patient's tachycardia and leukocytosis resolved with IV antibiotics. The patient will be transitioned to by mouth antibiotics to complete a 7 day course. However unsure what antibiotic is treating. Recommend CBC to evaluate leukocytosis one week after completion of antibiotics. Patient stable condition and agreeable be discharged on 05/20/2018. Follow-up with GI and primary care doctor within one week. Keep scheduled appointment to have ureteral stent removed on Sunday05/22/2018 Discharge discussed with: patient, nurse - Time Spent with Patient Total time spent providing and/or coordinating discharge services: Greater than 30 minutes - Discharge Medications Prescriptions: levoFLOXacin [Levaquin] 750 mg PO DAILY 3 Days #3 tablet Home Medications: Albuterol Sulfate [Albuterol Inhaler] 2 puff IH Q4H PRN 04/09/18 [History] Aspirin Enteric Coated [Aspirin EC] 81 mg PO DAILY 04/09/18 [History] Buspirone HCl [Buspar] 15 mg PO QID 04/09/18 [History] Cholecalciferol (D-3) [Vitamin D] 2,000 unit PO DAILY 04/09/18 [History] Ezetimibe 10 mg PO HS 04/09/18 [History] Ferrous Sulfate [Iron] 325 mg PO BID 04/09/18 [History] Levothyroxine Sodium [Levoxyl] 200 mcg PO DAILY 04/09/18 [History] Metformin HCl [Metformin HCl ER] 500 mg PO QID 04/09/18 [History] Neomycin Sulfate 500 mg PO MOWEFR 04/09/18 [History] Potassium Citrate [Urocit-K] 20 meq PO BID 04/09/18 [History] Pregabalin [Lyrica] 200 mg PO TID 04/09/18 [History] Flunisolide 2 spr NS BID 05/07/18 [History] OxyCODONE Immed Rel [Roxicodone 5 MG] 5 mg PO Q8H 05/07/18 [History] Zolmitriptan [Zomig] 5 mg PO DAILY PRN 05/07/18 [History] hydroCHLOROthiazide [Hydrochlorothiazide] 12.5 mg PO DAILY 05/07/18 [History] Doxycycline Hyclate [Vibramycin] 100 mg PO BID 05/18/18 [History] levoFLOXacin [Levaquin] 750 mg PO DAILY 3 Days #3 tablet 05/20/18 [Rx] Allergies/Adverse Reactions: 3 Allergy/AdvReac Type Severity Reaction Status Date / Time acetaminophen [From Tylenol] Allergy See Verified 05/19/18 10:53 Comments cephalexin Allergy Hives Verified 05/19/18 10:53 ciprofloxacin [From Cipro] Allergy Hives Verified 05/19/18 10:53 Erythromycin Base Allergy Hives Verified 05/18/18 04:45 nitrofurantoin Allergy Hives Verified 05/19/18 10:53 NSAIDS (Non-Steroidal Allergy See Verified 05/19/18 10:53 Anti-Inflamma Comments Penicillins Allergy Rash Verified 05/19/18 10:53 aspirin AdvReac See Verified 05/19/18 10:53 Comments dichloralphenazone AdvReac Hypertensio Verified 05/18/18 04:45 [From Midrin] n Iodinated Contrast- Oral and AdvReac See Verified 05/19/18 10:53 IV Dye Comments Isometheptene [From Midrin] AdvReac Hypertensio Verified 05/18/18 04:45 n [id number] Antimigraine AdvReac See Verified 05/19/18 10:53 Agents Comments Date of admission: 05/16/18 15:31 Primary care physician: iTla Quezada MD Consults: 05/16/18 18:34 Consult to Gastroenterology [CONS] Routine Consulting Provider: Gastroenterology [facility] Reason for Consult: Pneumobilia Call Completed: No - Constitutional Vitals: Temp Pulse Resp BP Pulse Ox 97.6 F 78 16 110/82 96 05/20/18 06:35 05/20/18 06:35 05/20/18 06:35 05/20/18 06:35 05/20/18 06:35 Exam: Constitutional: No acute distress Psych: AAO x 3 Neck: supple, no JVD Cardio: Regular rate and rhythm +s1s2, no murmurs Resp: clear to ascultation bilaterally Abd: soft, no flank tenderness, no RUQ tendeness - Patient Status Disposition: Home, Self-Care Condition: Good Functional capacity at discharge: independent ambulation Overall status at discharge: patient is back to baseline - Discharge Instructions Follow Up With: Tila Quezada MD [Primary Care Provider] - - Diet and Activity Activity: increase activity as tolerated Diet: advance to your usual diet
== END 2018-05-20 10:46 | disposition home or self-care (01) ==
LOC: 3BNU → SUATTDRO 15:31
PROVIDERS: ADMIT Internal Medicine; ATTEND Internal Medicine
PROC: ENDOEBX (2018-05-18 13:05)

== ENCOUNTER 2018-06-20 11:50 | Observation (INO) ==
[2018-06-20] MEDS ORDERED: Ondansetron ODT 4 MG TAB.RAPDIS SL ONE (13:52)
[2018-06-20] MEDS ORDERED: *HR* FentaNYL (PF) 100 MCG/2 ML VIAL IVP ONE (13:54)
[2018-06-20] MEDS ORDERED: 0.9 % Sodium Chloride 500 ML IVC ONE (13:55)
--- NOTE | 2018-06-20 14:03 | Emergency Department Note ---
Disposition Clinical Impression: Nephrolithiasis, Abdominal pain Disposition: Admitted As Inpatient Condition: Fair Referrals: Tila Quezada MD [Primary Care Provider] - Forms: ED Satisfaction Letter, Work/School Release Time of Disposition: 15:08 General Adult HPI - General Chief complaint: ED Abdominal Pain Stated complaint: Kidney stone Time Seen by Provider: 06/20/18 13:36 Source: patient Mode of arrival: private vehicle Limitations: no limitations Nursing Notes Reviewed: Yes Vital Signs Reviewed: Yes - History of Present Illness HPI Narrative: Patient is a 57-year-old female with nephrocalcinosis and a history of multiple kidney stones, coming in today with 2-3 weeks of right-sided pain that is constant in nature, 8 out of 10 in severity, feels like her previous stones, and is crampy. She states that she called Dr. Sarkar's office today and he sent her over here to be admitted and wants to do surgery on her in the morning. She states her other medical issues include a medullary sponge kidney , and an empty sella turcica. She takes 5 mg of oxycodone 3 times a day, Lyrica , and atorvastatin. Recent surgeries include a knee replacement this year, as well as surgical removal of other kidney stones. She denies smoking, drinking, or any illicit or illegal drugs. She is also endorsing some nausea, and some leg tingling that is chronic in nature. Pain Scale: 8 - Related Data Home Medications Medication Instructions Recorded Confirmed Albuterol Sulfate [Albuterol 2 puff IH Q4H PRN 04/09/18 06/20/18 Inhaler] Aspirin Enteric Coated [Aspirin EC] 81 mg PO DAILY 04/09/18 06/20/18 Buspirone HCl [Buspar] 15 mg PO QID 04/09/18 06/20/18 Cholecalciferol (D-3) [Vitamin D] 2,000 unit PO DAILY 04/09/18 06/20/18 Ezetimibe 10 mg PO HS 04/09/18 06/20/18 Ferrous Sulfate [Iron] 325 mg PO BID 04/09/18 06/20/18 Levothyroxine Sodium [Levoxyl] 200 mcg PO DAILY 04/09/18 06/20/18 Metformin HCl [Metformin HCl ER] 500 mg PO QID 04/09/18 06/20/18 Neomycin Sulfate 500 mg PO MOWEFR 04/09/18 06/20/18 Potassium Citrate [Urocit-K] 20 meq PO BID 04/09/18 06/20/18 Pregabalin [Lyrica] 200 mg PO TID 04/09/18 06/20/18 Flunisolide 2 spr NS BID 05/07/18 06/20/18 OxyCODONE Immed Rel [Roxicodone 5 5 mg PO Q8H 05/07/18 06/20/18 MG] Zolmitriptan [Zomig] 5 mg PO DAILY PRN 05/07/18 06/20/18 hydroCHLOROthiazide 12.5 mg PO DAILY 05/07/18 06/20/18 [Hydrochlorothiazide] Allergies Allergy/AdvReac Type Severity Reaction Status Date / Time acetaminophen [From Tylenol] Allergy See Verified 05/19/18 10:53 Comments cephalexin Allergy Hives Verified 05/19/18 10:53 ciprofloxacin [From Cipro] Allergy Hives Verified 05/19/18 10:53 Erythromycin Base Allergy Hives Verified 05/18/18 04:45 nitrofurantoin Allergy Hives Verified 05/19/18 10:53 NSAIDS (Non-Steroidal Allergy See Verified 05/19/18 10:53 Anti-Inflamma Comments Penicillins Allergy Rash Verified 05/19/18 10:53 aspirin AdvReac See Verified 05/19/18 10:53 Comments dichloralphenazone AdvReac Hypertensio Verified 05/18/18 04:45 [From Midrin] n Iodinated Contrast- Oral and AdvReac See Verified 05/19/18 10:53 IV Dye Comments Isometheptene [From Midrin] AdvReac Hypertensio Verified 05/18/18 04:45 n [id number] Antimigraine AdvReac See Verified 05/19/18 10:53 Agents Comments All systems ED: reviewed and negative except as stated. Constitutional: Denies: fever, chills Cardiovascular: Denies: chest pain Respiratory: Denies: dyspnea Gastrointestinal: Reports: nausea. Denies: abdominal pain, vomiting, diarrhea, constipation Genitourinary: Denies: urgency, dysuria Musculoskeletal: Reports: back pain (right flank) Neurological: Reports: headache (mild, chronic) Past Medical History - Past Medical History Medical history: Reports: diabetes, hypertension Surgical history: Reports: appendectomy, hysterectomy Psychiatric history: Reports: depression - Social History Smoking Status: Never smoker Smokeless Tobacco Status: No Alcohol use: Reports: none Drug use: Reports: none Physical Exam - General Limitations: no limitations General appearance: alert - Head Head exam: atraumatic, normocephalic - Eye Eye exam: Present: normal appearance, PERRL - ENT ENT exam: normal exam, normal oropharynx, mucous membranes moist - Chest Chest inspection: Present: normal inspection, symmetric chest wall rise - Respiratory Respiratory exam: Present: normal lung sounds bilaterally. Absent: respiratory distress, wheezes - Cardiovascular Cardiovascular exam: Present: regular rate, normal rhythm - Abdominal Exam Abdominal exam: Present: soft, Non-Tender - Back Exam Back exam: Present: tenderness (right flank) - Neurological Exam Neurological exam: Present: alert, oriented X3 - Psychiatric Psychiatric exam: Present: normal affect, normal mood - Skin Skin exam: Present: warm, dry, intact Course Course Narrative: Pt had an XR on 06/18/18 showing a 5mm stone in her ureter and was sent by Dr. Sarkar to be admitted so he can remove it surgically. We will perform basic labs to include CBC, CMP, coags, and EKG. We will treat her pain and provide IV hydration. Vital Signs Temperature 98.9 F 06/20/18 11:55 Pulse Rate 121 06/20/18 11:55 Respiratory Rate 18 06/20/18 11:55 Blood Pressure 115/81 06/20/18 11:55 O2 Sat by Pulse Oximetry 93 06/20/18 11:55 Temperature 98.9 F 06/20/18 13:57 Pulse Rate 82 06/20/18 15:48 Respiratory Rate 16 06/20/18 15:48 Blood Pressure 96/73 06/20/18 15:48 O2 Sat by Pulse Oximetry 93 06/20/18 15:48 Oxygen Delivery Oxygen Delivery Room Air Medical Decision Making - MDM Narrative Medical decision making narrative: Pts labs were unremarkable, spoke with Dr. Parkinson with Urology who agreed to admit the patient to his service, did not want to add anything to the workup we performed here. Pt remained stable while in the department. We controlled her pain and nausea. - Medical Records Medical records reviewed: Yes I reviewed the patient's medical records. - Lab Data Lab results reviewed: Yes I reviewed the patient's lab results. Result diagrams: 06/20/18 13:58 06/20/18 13:58 Lab Results 06/20/18 06/20/18 06/20/18 Range/Units 13:58 13:58 13:58 WBC 13.5 H (4.3-11.1) K/mcL RBC 4.50 (3.82-4.97) M/mcL Hgb 13.4 (11.5-15.4) g/dL Hct 39.9 (35.3-44.9) % MCV 88.7 (83.0-100.0) fL MCH 29.8 (28.0-33.3) pg MCHC 33.6 (31.6-35.5) g/dL RDW 14.7 H (11.5-14.5) % Plt Count 242 (140-400) K/mcL MPV 8.9 L (9.4-12.4) fL Immature Gran % 0.7 (0-4) % Seg Neutrophils % 69.9 % Lymphocytes % 20.4 % Monocytes % 7.3 % Eosinophils % 1.2 % Basophils % 0.5 % Neutrophils # 9.4 H (1.6-8.9) K/mcL Lymphocytes # 2.8 (0.6-4.6) K/mcL Monocytes # 1.0 (0.0-1.3) K/mcL Eosinophils # 0.2 (0.0-0.6) K/mcL Basophils # 0.1 (0.0-0.2) K/mcL PT 10.1 (9.4-12.1) Seconds INR 0.9 APTT 28.8 (26.0-36.0) Seconds Sodium 134 L (136-145) mEq/L Potassium 3.5 (3.5-5.1) mEq/L Chloride 98 (98-107) mEq/L Carbon Dioxide 27 (23-29) mEq/L BUN 8 (6-20) mg/dL Creatinine 0.60 (0.60-1.20) mg/dL Est GFR ( Amer) > 60 (> 60) Est GFR (Non-Af Amer) > 60 (> 60) BUN/Creatinine Ratio 13 (6-26) Glucose 99 (70-105) mg/dL Calculated Osmolality 276 L (280-300) Calcium 9.2 (8.6-10.3) mg/dL Total Bilirubin 0.3 (0.3-1.0) mg/dL AST 21 (13-39) Units/L ALT 34 (7-52) Units/L Alkaline Phosphatase 120 H (34-104) Units/L Serum Total Protein 6.9 (6.4-8.9) g/dL Albumin 3.7 (3.5-5.7) g/dL Globulin 3.2 (2.4-3.5) g/dL Albumin/Globulin Ratio 1.2 (1.1-2.2) Ur Specimen Adequacy Urine Color (Yellow) Urine Clarity (Clear) Urine pH (5.0-8.0) pH Units Ur Specific [place] (1.010-1.025) Urine Protein (Neg-Trace) mg/dL Urine Glucose (UA) (Normal) mg/dL Urine Ketones (Negative) mg/dL Urine Blood (Negative) Urine Nitrite (Negative) Urine Bilirubin (Negative) Urine Urobilinogen (Normal) mg/dL Ur Leukocyte Esterase (Negative) Urine Microscopic RBC (0-3) per hpf Urine Microscopic WBC (0-3) per hpf Ur Squamous Epith Cells (None-Few) per lpf Urine Bacteria (None-Few) per hpf Hyaline Casts (None-Few) per lpf Ur Culture Indicated? (NO) 06/20/18 Range/Units 14:00 WBC (4.3-11.1) K/mcL RBC (3.82-4.97) M/mcL Hgb (11.5-15.4) g/dL Hct (35.3-44.9) % MCV (83.0-100.0) fL MCH (28.0-33.3) pg MCHC (31.6-35.5) g/dL RDW (11.5-14.5) % Plt Count (140-400) K/mcL MPV (9.4-12.4) fL Immature Gran % (0-4) % Seg Neutrophils % % Lymphocytes % % Monocytes % % Eosinophils % % Basophils % % Neutrophils # (1.6-8.9) K/mcL Lymphocytes # (0.6-4.6) K/mcL Monocytes # (0.0-1.3) K/mcL Eosinophils # (0.0-0.6) K/mcL Basophils # (0.0-0.2) K/mcL PT (9.4-12.1) Seconds INR APTT (26.0-36.0) Seconds Sodium (136-145) mEq/L Potassium (3.5-5.1) mEq/L Chloride (98-107) mEq/L Carbon Dioxide (23-29) mEq/L BUN (6-20) mg/dL Creatinine (0.60-1.20) mg/dL Est GFR ( Amer) (> 60) Est GFR (Non-Af Amer) (> 60) BUN/Creatinine Ratio (6-26) Glucose (70-105) mg/dL Calculated Osmolality (280-300) Calcium (8.6-10.3) mg/dL Total Bilirubin (0.3-1.0) mg/dL AST (13-39) Units/L ALT (7-52) Units/L Alkaline Phosphatase (34-104) Units/L Serum Total Protein (6.4-8.9) g/dL Albumin (3.5-5.7) g/dL Globulin (2.4-3.5) g/dL Albumin/Globulin Ratio (1.1-2.2) Ur Specimen Adequacy See below A Urine Color Yellow (Yellow) Urine Clarity Clear (Clear) Urine pH 7.0 (5.0-8.0) pH Units Ur Specific [place] < 1.005 L (1.010-1.025) Urine Protein Negative (Neg-Trace) mg/dL Urine Glucose (UA) Normal (Normal) mg/dL Urine Ketones Negative (Negative) mg/dL Urine Blood Negative (Negative) Urine Nitrite Negative (Negative) Urine Bilirubin Negative (Negative) Urine Urobilinogen Normal (Normal) mg/dL Ur Leukocyte Esterase Large H (Negative) Urine Microscopic RBC 0-3 (0-3) per hpf Urine Microscopic WBC 15-30 H (0-3) per hpf Ur Squamous Epith Cells Many H (None-Few) per lpf Urine Bacteria None Seen (None-Few) per hpf Hyaline Casts None Seen (None-Few) per lpf Ur Culture Indicated? NO. A (NO) - Radiology Data Radiology results reviewed: Yes I reviewed the patient's radiology results. - EKG Data EKG #1 EKG attestation: Yes I reviewed and interpreted this EKG. EKG results narrative: HR 96, Rhythm sinus, normal axis. MO 143, QRS 80. No evidence of ST elevation or depression. Attestation Statement - Attestation Attestation: I, Kyle Leyva DO, examined this patient [id number] and my medical decision-making was reviewed with Dr. Candelaria Bolanos, Resident Physician. I agree with the documented findings, disposition and treatment plan as described except to the extent set forth below. Please see my progress notes for details.
[2018-06-20 14:20] LABS: Basophils # 0.1 K/mcL (0.0-0.2); Basophils % 0.5 %; Eosinophils # 0.2 K/mcL (0.0-0.6); Eosinophils % 1.2 %; Hematocrit 39.9 % (35.3-44.9); Hemoglobin 13.4 g/dL (11.5-15.4); Immature Granulocytes % 0.7 % (0-4); Lymphocytes # 2.8 K/mcL (0.6-4.6); Lymphocytes % 20.4 %; Mean Corpuscular HGB Conc 33.6 g/dL (31.6-35.5); Mean Corpuscular Hemoglobin 29.8 pg (28.0-33.3); Mean Corpuscular Volume 88.7 fL (83.0-100.0); Mean Platelet Volume 8.9 fL (9.4-12.4); Monocytes % 7.3 %; Neutrophils # 9.4 K/mcL (1.6-8.9); Platelet Count 242 K/mcL (140-400); Red Cell Distribution Width 14.7 % (11.5-14.5); Segmented Neutrophils % 69.9 %
[2018-06-20 14:25] LABS: INR 0.9; Prothrombin Time 10.1 Seconds (9.4-12.1)
[2018-06-20 14:28] LABS: Activated Partial Thrombo Time 28.8 Seconds (26.0-36.0)
[2018-06-20 14:49] LABS: Alanine Aminotransferase 34 Units/L (7-52); Albumin 3.7 g/dL (3.5-5.7); Albumin/Globulin Ratio 1.2 (1.1-2.2); Alkaline Phosphatase 120 Units/L (34-104); Aspartate Amino Transferase 21 Units/L (13-39); BUN/Creatinine Ratio 13 (6-26); Bilirubin,Total 0.3 mg/dL (0.3-1.0); Blood Urea Nitrogen 8 mg/dL (6-20); Calcium 9.2 mg/dL (8.6-10.3); Carbon Dioxide 27 mEq/L (23-29); Chloride 98 mEq/L (98-107); Globulin 3.2 g/dL (2.4-3.5); Glucose 99 mg/dL (70-105); Osmolality,Calculated 276 (280-300); Potassium 3.5 mEq/L (3.5-5.1); Sodium 134 mEq/L (136-145); Total Protein 6.9 g/dL (6.4-8.9); eGFR For Non-African Americans > 60 (> 60)
--- NOTE | 2018-06-20 14:57 | Emergency Department Note ---
Disposition Clinical Impression: Nephrolithiasis, Abdominal pain Disposition: Admitted As Inpatient Condition: Fair Referrals: Tila Quezada MD [Primary Care Provider] - Forms: ED Satisfaction Letter, Work/School Release Time of Disposition: 15:52 General Adult HPI - General Chief complaint: ED Abdominal Pain Stated complaint: Kidney stone Time Seen by Provider: 06/20/18 13:36 Source: patient Mode of arrival: private vehicle Limitations: no limitations - History of Present Illness Pain Scale: 8 - Related Data Home Medications Medication Instructions Recorded Confirmed Albuterol Sulfate [Albuterol 2 puff IH Q4H PRN 04/09/18 05/19/18 Inhaler] Aspirin Enteric Coated [Aspirin EC] 81 mg PO DAILY 04/09/18 05/19/18 Buspirone HCl [Buspar] 15 mg PO QID 04/09/18 05/19/18 Cholecalciferol (D-3) [Vitamin D] 2,000 unit PO DAILY 04/09/18 05/19/18 Ezetimibe 10 mg PO HS 04/09/18 05/19/18 Ferrous Sulfate [Iron] 325 mg PO BID 04/09/18 05/19/18 Levothyroxine Sodium [Levoxyl] 200 mcg PO DAILY 04/09/18 05/19/18 Metformin HCl [Metformin HCl ER] 500 mg PO QID 04/09/18 05/19/18 Neomycin Sulfate 500 mg PO MOWEFR 04/09/18 05/19/18 Potassium Citrate [Urocit-K] 20 meq PO BID 04/09/18 05/19/18 Pregabalin [Lyrica] 200 mg PO TID 04/09/18 05/19/18 Flunisolide 2 spr NS BID 05/07/18 05/19/18 OxyCODONE Immed Rel [Roxicodone 5 5 mg PO Q8H 05/07/18 05/19/18 MG] Zolmitriptan [Zomig] 5 mg PO DAILY PRN 05/07/18 05/19/18 hydroCHLOROthiazide 12.5 mg PO DAILY 05/07/18 05/19/18 [Hydrochlorothiazide] Allergies Allergy/AdvReac Type Severity Reaction Status Date / Time acetaminophen [From Tylenol] Allergy See Verified 05/19/18 10:53 Comments cephalexin Allergy Hives Verified 05/19/18 10:53 ciprofloxacin [From Cipro] Allergy Hives Verified 05/19/18 10:53 Erythromycin Base Allergy Hives Verified 05/18/18 04:45 nitrofurantoin Allergy Hives Verified 05/19/18 10:53 NSAIDS (Non-Steroidal Allergy See Verified 05/19/18 10:53 Anti-Inflamma Comments Penicillins Allergy Rash Verified 05/19/18 10:53 aspirin AdvReac See Verified 05/19/18 10:53 Comments dichloralphenazone AdvReac Hypertensio Verified 05/18/18 04:45 [From Midrin] n Iodinated Contrast- Oral and AdvReac See Verified 05/19/18 10:53 IV Dye Comments Isometheptene [From Midrin] AdvReac Hypertensio Verified 05/18/18 04:45 n [id number] Antimigraine AdvReac See Verified 05/19/18 10:53 Agents Comments Constitutional: Denies: fever, chills Cardiovascular: Denies: chest pain Respiratory: Denies: dyspnea Gastrointestinal: Reports: nausea. Denies: abdominal pain, vomiting, diarrhea, constipation Genitourinary: Denies: urgency, dysuria Musculoskeletal: Reports: back pain (right flank) Neurological: Reports: headache (mild, chronic) Past Medical History - Past Medical History Medical history: Reports: diabetes, hypertension Surgical history: Reports: appendectomy, hysterectomy Psychiatric history: Reports: depression - Social History Smoking Status: Never smoker Smokeless Tobacco Status: No Alcohol use: Reports: none Drug use: Reports: none Physical Exam - General Limitations: no limitations General appearance: alert Course Vital Signs Temperature 98.9 F 06/20/18 11:55 Pulse Rate 121 06/20/18 11:55 Respiratory Rate 18 06/20/18 11:55 Blood Pressure 115/81 06/20/18 11:55 O2 Sat by Pulse Oximetry 93 06/20/18 11:55 Temperature 98.9 F 06/20/18 13:57 Pulse Rate 82 06/20/18 15:48 Respiratory Rate 16 06/20/18 15:48 Blood Pressure 96/73 06/20/18 15:48 O2 Sat by Pulse Oximetry 93 06/20/18 15:48 Oxygen Delivery Oxygen Delivery Room Air Medical Decision Making - Lab Data Result diagrams: 06/20/18 13:58 06/20/18 13:58 Lab Results 06/20/18 06/20/18 06/20/18 Range/Units 13:58 13:58 13:58 WBC 13.5 H (4.3-11.1) K/mcL RBC 4.50 (3.82-4.97) M/mcL Hgb 13.4 (11.5-15.4) g/dL Hct 39.9 (35.3-44.9) % MCV 88.7 (83.0-100.0) fL MCH 29.8 (28.0-33.3) pg MCHC 33.6 (31.6-35.5) g/dL RDW 14.7 H (11.5-14.5) % Plt Count 242 (140-400) K/mcL MPV 8.9 L (9.4-12.4) fL Immature Gran % 0.7 (0-4) % Seg Neutrophils % 69.9 % Lymphocytes % 20.4 % Monocytes % 7.3 % Eosinophils % 1.2 % Basophils % 0.5 % Neutrophils # 9.4 H (1.6-8.9) K/mcL Lymphocytes # 2.8 (0.6-4.6) K/mcL Monocytes # 1.0 (0.0-1.3) K/mcL Eosinophils # 0.2 (0.0-0.6) K/mcL Basophils # 0.1 (0.0-0.2) K/mcL PT 10.1 (9.4-12.1) Seconds INR 0.9 APTT 28.8 (26.0-36.0) Seconds Sodium 134 L (136-145) mEq/L Potassium 3.5 (3.5-5.1) mEq/L Chloride 98 (98-107) mEq/L Carbon Dioxide 27 (23-29) mEq/L BUN 8 (6-20) mg/dL Creatinine 0.60 (0.60-1.20) mg/dL Est GFR ( Amer) > 60 (> 60) Est GFR (Non-Af Amer) > 60 (> 60) BUN/Creatinine Ratio 13 (6-26) Glucose 99 (70-105) mg/dL Calculated Osmolality 276 L (280-300) Calcium 9.2 (8.6-10.3) mg/dL Total Bilirubin 0.3 (0.3-1.0) mg/dL AST 21 (13-39) Units/L ALT 34 (7-52) Units/L Alkaline Phosphatase 120 H (34-104) Units/L Serum Total Protein 6.9 (6.4-8.9) g/dL Albumin 3.7 (3.5-5.7) g/dL Globulin 3.2 (2.4-3.5) g/dL Albumin/Globulin Ratio 1.2 (1.1-2.2) Ur Specimen Adequacy Urine Color (Yellow) Urine Clarity (Clear) Urine pH (5.0-8.0) pH Units Ur Specific [place] (1.010-1.025) Urine Protein (Neg-Trace) mg/dL Urine Glucose (UA) (Normal) mg/dL Urine Ketones (Negative) mg/dL Urine Blood (Negative) Urine Nitrite (Negative) Urine Bilirubin (Negative) Urine Urobilinogen (Normal) mg/dL Ur Leukocyte Esterase (Negative) Urine Microscopic RBC (0-3) per hpf Urine Microscopic WBC (0-3) per hpf Ur Squamous Epith Cells (None-Few) per lpf Urine Bacteria (None-Few) per hpf Hyaline Casts (None-Few) per lpf Ur Culture Indicated? (NO) 06/20/18 Range/Units 14:00 WBC (4.3-11.1) K/mcL RBC (3.82-4.97) M/mcL Hgb (11.5-15.4) g/dL Hct (35.3-44.9) % MCV (83.0-100.0) fL MCH (28.0-33.3) pg MCHC (31.6-35.5) g/dL RDW (11.5-14.5) % Plt Count (140-400) K/mcL MPV (9.4-12.4) fL Immature Gran % (0-4) % Seg Neutrophils % % Lymphocytes % % Monocytes % % Eosinophils % % Basophils % % Neutrophils # (1.6-8.9) K/mcL Lymphocytes # (0.6-4.6) K/mcL Monocytes # (0.0-1.3) K/mcL Eosinophils # (0.0-0.6) K/mcL Basophils # (0.0-0.2) K/mcL PT (9.4-12.1) Seconds INR APTT (26.0-36.0) Seconds Sodium (136-145) mEq/L Potassium (3.5-5.1) mEq/L Chloride (98-107) mEq/L Carbon Dioxide (23-29) mEq/L BUN (6-20) mg/dL Creatinine (0.60-1.20) mg/dL Est GFR ( Amer) (> 60) Est GFR (Non-Af Amer) (> 60) BUN/Creatinine Ratio (6-26) Glucose (70-105) mg/dL Calculated Osmolality (280-300) Calcium (8.6-10.3) mg/dL Total Bilirubin (0.3-1.0) mg/dL AST (13-39) Units/L ALT (7-52) Units/L Alkaline Phosphatase (34-104) Units/L Serum Total Protein (6.4-8.9) g/dL Albumin (3.5-5.7) g/dL Globulin (2.4-3.5) g/dL Albumin/Globulin Ratio (1.1-2.2) Ur Specimen Adequacy See below A Urine Color Yellow (Yellow) Urine Clarity Clear (Clear) Urine pH 7.0 (5.0-8.0) pH Units Ur Specific [place] < 1.005 L (1.010-1.025) Urine Protein Negative (Neg-Trace) mg/dL Urine Glucose (UA) Normal (Normal) mg/dL Urine Ketones Negative (Negative) mg/dL Urine Blood Negative (Negative) Urine Nitrite Negative (Negative) Urine Bilirubin Negative (Negative) Urine Urobilinogen Normal (Normal) mg/dL Ur Leukocyte Esterase Large H (Negative) Urine Microscopic RBC 0-3 (0-3) per hpf Urine Microscopic WBC 15-30 H (0-3) per hpf Ur Squamous Epith Cells Many H (None-Few) per lpf Urine Bacteria None Seen (None-Few) per hpf Hyaline Casts None Seen (None-Few) per lpf Ur Culture Indicated? NO. A (NO) Attestation Statement - Attestation Attestation: I, Kyle Leyva DO, examined this patient [id number] and my medical decision-making was reviewed with Dr. Candelaria Bolanos, Resident Physician. I agree with the documented findings, disposition and treatment plan as described except to the extent set forth below. Please see my progress notes for details. 57-year-old female presents emergency room at the request of urologist for evaluation of an obstructed 5 mm stone in the midureter. Patient's had this happen multiple times the past is required surgical intervention. Patient denies any fevers chills chest pain shortness of breath nausea vomiting or diarrhea. No trauma or injuries. This is presenting identical to all of her other stones. Patient has had onset of flank pain for several days. She was advised to come in for surgical intervention. Patient be provided with pain medication fluids nausea medication along with screening labs including urinalysis and then disposition will be determined. Otherwise her lungs are clear heart is regular abdomen is soft she has mild right-sided flank pain. Her initial vital signs were tachycardic but after pain medication. She appears to be settling down at this point. Disposition pending the full workup and treatment course. See detailed documentation the physical exam, medical intervention, medical decision-making and disposition in the resident physician' s note. No critical care pad the patient's treatment course at this time. 1450 Patient's labs are unremarkable. Kidney function appears to be stable. Urinalysis is still pending. Patient will be discussed with the on-call urologist for recommendations and disposition. Main complaint on arrival was flank pain along with the stone findings. 1545 Patient's urine does not show any acute signs of infection. No other acute etiology noted this time. Patient is stable and will be admitted to the urology service.
--- NOTE | 2018-06-20 15:18 | Urology History & Physical ---
<Radha Zimmer N - Last Filed: 06/20/18 15:15> Date of Encounter: 06/20/18 Time of Encounter: 15:15 Assessment and Plan (1) Ureterolithiasis Current Visit: Yes Status: Acute Patient is a 57 year old female who presents with a 5mm right mid-ureteral stone. Patient is currently resting comfortably in no apparent distress. Plan to admit patient to Urology service with stone protocol and remain NPO after midnight. Patient wishes to proceed with ureteroscopic stone extraction. History of Present Illness Chief complaint: right flank pain HPI: Ms. Bravo is a 57 year old female who presents with right flank pain and a history of renal stones. Patient states pain began approximately 2 days ago and has progressively worsened. Patient underwent KUB 06/18/18 revealing possible 5mm right mid-ureteral stone. Patient was scheduled to see Dr. Sarkar today, but her appointment was canceled. Patient was instructed to go to ED if pain became intolerable. Patient states pain is located to right flank and is accompanied by nausea. Patient denies gross hematuria, fever, chills, vomiting, difficulty urinating. Patient has an extensive history of renal stones with most recent stone being treated by ureteroscopy and laser lithotripsy (left) in April [address] Sarkar. Patient denies known family history of renal stones. Past Med Surg Social Fam HX - Past Medical History Medical history: diabetes, hypertension Psychiatric history: depression - Past Surgical History Surgical History: appendectomy, hysterectomy Additional surgical history: Left knee replacement, carpal tunnel hernia repair , kidney stone removal - Social History Smoking Status: Never smoker Smokeless Tobacco Status: No Alcohol use: none Drug use: none Medications and Allergies Albuterol Sulfate [Albuterol Inhaler] 2 puff IH Q4H PRN 04/09/18 [History] Aspirin Enteric Coated [Aspirin EC] 81 mg PO DAILY 04/09/18 [History] Buspirone HCl [Buspar] 15 mg PO QID 04/09/18 [History] Cholecalciferol (D-3) [Vitamin D] 2,000 unit PO DAILY 04/09/18 [History] Ezetimibe 10 mg PO HS 04/09/18 [History] Ferrous Sulfate [Iron] 325 mg PO BID 04/09/18 [History] Levothyroxine Sodium [Levoxyl] 200 mcg PO DAILY 04/09/18 [History] Metformin HCl [Metformin HCl ER] 500 mg PO QID 04/09/18 [History] Neomycin Sulfate 500 mg PO MOWEFR 04/09/18 [History] Potassium Citrate [Urocit-K] 20 meq PO BID 04/09/18 [History] Pregabalin [Lyrica] 200 mg PO TID 04/09/18 [History] Flunisolide 2 spr NS BID 05/07/18 [History] OxyCODONE Immed Rel [Roxicodone 5 MG] 5 mg PO Q8H 05/07/18 [History] Zolmitriptan [Zomig] 5 mg PO DAILY PRN 05/07/18 [History] hydroCHLOROthiazide [Hydrochlorothiazide] 12.5 mg PO DAILY 05/07/18 [History] 3 Allergy/AdvReac Type Severity Reaction Status Date / Time acetaminophen [From Tylenol] Allergy See Verified 05/19/18 10:53 Comments cephalexin Allergy Hives Verified 05/19/18 10:53 ciprofloxacin [From Cipro] Allergy Hives Verified 05/19/18 10:53 Erythromycin Base Allergy Hives Verified 05/18/18 04:45 nitrofurantoin Allergy Hives Verified 05/19/18 10:53 NSAIDS (Non-Steroidal Allergy See Verified 05/19/18 10:53 Anti-Inflamma Comments Penicillins Allergy Rash Verified 05/19/18 10:53 aspirin AdvReac See Verified 05/19/18 10:53 Comments dichloralphenazone AdvReac Hypertensio Verified 05/18/18 04:45 [From Midrin] n Iodinated Contrast- Oral and AdvReac See Verified 05/19/18 10:53 IV Dye Comments Isometheptene [From Midrin] AdvReac Hypertensio Verified 05/18/18 04:45 n [id number] Antimigraine AdvReac See Verified 05/19/18 10:53 Agents Comments Review of Systems - Constitutional fatigue, no chills, no fever(s) - EENT Nose, mouth and throat: no dizziness, no headache(s) - Cardiovascular no chest pain, no diaphoresis, no dyspnea - Respiratory no cough, no dyspnea - Gastrointestinal abdominal pain, nausea, no vomiting - Genitourinary Genitourinary: flank pain (right ), no difficulty urinating, no dysuria, no hematuria, no urinary frequency, no urinary hesitancy - Musculoskeletal back pain, no muscle weakness - Integumentary no rash, no swelling - Neurological no confusion, no syncope - Psychiatric no anxiety, no confusion - Hematologic/Lymphatic no easy bleeding, no easy bruising - Allergic/Immunologic no throat swelling, no wheezing Exam Initial Vital Signs Temp Pulse Resp BP Pulse Ox 98.9 F 121 18 115/81 93 06/20/18 11:55 06/20/18 11:55 06/20/18 11:55 06/20/18 11:55 06/20/18 11:55 - General physical appearance Present: well developed, no distress, moderate pain - Eyes Present: PERRL, normal ocular movement - ENT Present: normal nares, no hearing loss, no congestion - Neck Present: no masses, trachea midline - Respiratory Present: normal respiratory effort - Cardiovascular Cardiovascular exam IM: RRR - Abdomen Abdomen: Present: soft, tender (right CVAT) - Integumentary Present: no rash, no abnormal pigmentation - Neurologic Present: normal coordination - Musculoskeletal Present: other (normal posture ) Urology Results - Labs 06/20/18 13:58 06/20/18 13:58 Abnormal lab results WBC 13.5 K/mcL (4.3-11.1) H 06/20/18 13:58 RDW 14.7 % (11.5-14.5) H 06/20/18 13:58 MPV 8.9 fL (9.4-12.4) L 06/20/18 13:58 Neutrophils # 9.4 K/mcL (1.6-8.9) H 06/20/18 13:58 Sodium 134 mEq/L (136-145) L 06/20/18 13:58 Calculated Osmolality 276 (280-300) L 06/20/18 13:58 Alkaline Phosphatase 120 Units/L (34-104) H 06/20/18 13:58 Diabetes panel 06/20/18 Range/Units 13:58 Sodium 134 L (136-145) mEq/L Potassium 3.5 (3.5-5.1) mEq/L Chloride 98 (98-107) mEq/L Carbon Dioxide 27 (23-29) mEq/L BUN 8 (6-20) mg/dL Creatinine 0.60 (0.60-1.20) mg/dL Glucose 99 (70-105) mg/dL Calcium 9.2 (8.6-10.3) mg/dL AST 21 (13-39) Units/L ALT 34 (7-52) Units/L Alkaline Phosphatase 120 H (34-104) Units/L Albumin 3.7 (3.5-5.7) g/dL Calcium panel 06/20/18 Range/Units 13:58 Calcium 9.2 (8.6-10.3) mg/dL Albumin 3.7 (3.5-5.7) g/dL Pituitary panel 06/20/18 Range/Units 13:58 Sodium 134 L (136-145) mEq/L Potassium 3.5 (3.5-5.1) mEq/L Chloride 98 (98-107) mEq/L Carbon Dioxide 27 (23-29) mEq/L BUN 8 (6-20) mg/dL Creatinine 0.60 (0.60-1.20) mg/dL Glucose 99 (70-105) mg/dL Calcium 9.2 (8.6-10.3) mg/dL Adrenal panel 06/20/18 Range/Units 13:58 Sodium 134 L (136-145) mEq/L Potassium 3.5 (3.5-5.1) mEq/L Chloride 98 (98-107) mEq/L Carbon Dioxide 27 (23-29) mEq/L BUN 8 (6-20) mg/dL Creatinine 0.60 (0.60-1.20) mg/dL Glucose 99 (70-105) mg/dL Calcium 9.2 (8.6-10.3) mg/dL Total Bilirubin 0.3 (0.3-1.0) mg/dL AST 21 (13-39) Units/L ALT 34 (7-52) Units/L Alkaline Phosphatase 120 H (34-104) Units/L Albumin 3.7 (3.5-5.7) g/dL All other labs normal. - Imaging Abdominal x-ray: report reviewed, image reviewed <Rojelio Parkinson - Last Filed: 06/20/18 16:38> Date of Encounter: 06/20/18 History of Present Illness HPI: Ms. Bravo is a 57 year old female Exam Initial Vital Signs Temp Pulse Resp BP Pulse Ox 98.9 F 121 18 115/81 93 06/20/18 11:55 06/20/18 11:55 06/20/18 11:55 06/20/18 11:55 06/20/18 11:55 Urology Results - Labs 06/20/18 13:58 06/20/18 13:58 Abnormal lab results WBC 13.5 K/mcL (4.3-11.1) H 06/20/18 13:58 RDW 14.7 % (11.5-14.5) H 06/20/18 13:58 MPV 8.9 fL (9.4-12.4) L 06/20/18 13:58 Neutrophils # 9.4 K/mcL (1.6-8.9) H 06/20/18 13:58 Sodium 134 mEq/L (136-145) L 06/20/18 13:58 Calculated Osmolality 276 (280-300) L 06/20/18 13:58 Alkaline Phosphatase 120 Units/L (34-104) H 06/20/18 13:58 Ur Specimen Adequacy See below A 06/20/18 14:00 Ur Specific [place] < 1.005 (1.010-1.025) L 06/20/18 14:00 Ur Leukocyte Esterase Large (Negative) H 06/20/18 14:00 Urine Microscopic WBC 15-30 per hpf (0-3) H 06/20/18 14:00 Ur Squamous Epith Cells Many per lpf (None-Few) H 06/20/18 14:00 Ur Culture Indicated? NO. (NO) A 06/20/18 14:00 All other labs normal. - Attending Attestation Patient seen and examined with the PA. Agree with the assessment and plan. She has a right proximal ureteral stone. We will admit for pain control. Plan for right ureteroscopy, laser lithotripsy, and stent placement. All risks were informed. She is willing to proceed.
[2018-06-20] MEDS ORDERED: Naloxone 0.4 MG/ML INJ IVP PRN (15:31)
[2018-06-20] MEDS ORDERED: Ondansetron 4 MG/2 ML VIAL IVP PRN (15:31)
[2018-06-20 15:35] LABS: Bilirubin,Urine Negative (Negative); Blood,Urine Negative (Negative); Clarity,Urine Clear (Clear); Color,Urine Yellow (Yellow); Glucose,Urine (UA) Normal (Normal); Ketones,Urine Negative (Negative); Leukocyte Esterase,Urine Large (Negative); Nitrite,Urine Negative (Negative); Protein,Urine Negative (Neg-Trace); Specific Gravity,Urine < 1.005 (1.010-1.025); Urobilinogen,Urine Normal (Normal)
[2018-06-20 15:36] LABS: Bacteria,Urine None Seen per hpf (None-Few); Hyaline Casts,Urine None Seen per lpf (None-Few); RBC,Urine 0-3 per hpf (0-3); Squamous Epithelial Cell,Urine Many per lpf (None-Few); WBC,Urine 15-30 per hpf (0-3)
[2018-06-20] MEDS ORDERED: OXYCODONE Oral CONC 10 MG/0.5 ML ORAL.SYG SL PRN (15:37)
[2018-06-20] MEDS: OXYCODONE Oral CONC 10 MG/0.5 ML ORAL.SYG SL PRN (17:50)
[2018-06-20] MEDS: 0.9 % Sodium Chloride 1,000 ML IVC SCH (19:12)
[2018-06-20] MEDS: *HR* OxyCODONE Immed Rel 5 MG TABLET PO PRN (21:29)
[2018-06-21] MEDS: OXYCODONE Oral CONC 10 MG/0.5 ML ORAL.SYG SL PRN ×4 (01:33→23:25)
[2018-06-21] MEDS: 0.9 % Sodium Chloride 1,000 ML IVC SCH ×3 (02:55→14:07)
[2018-06-21] MEDS: *HR* OxyCODONE Immed Rel 5 MG TABLET PO PRN (03:08)
[2018-06-21 05:51] LABS: Hematocrit 37.4 % (35.3-44.9); Mean Corpuscular HGB Conc 32.1 g/dL (31.6-35.5); Mean Corpuscular Hemoglobin 29.6 pg (28.0-33.3); Mean Corpuscular Volume 92.1 fL (83.0-100.0); Mean Platelet Volume 8.9 fL (9.4-12.4); Platelet Count 193 K/mcL (140-400); Red Blood Count 4.06 M/mcL (3.82-4.97); Segmented Neutrophils % 60.3 %
[2018-06-21 05:52] LABS: Basophils % 0.4 %; Eosinophils # 0.2 K/mcL (0.0-0.6); Eosinophils % 2.1 %; Immature Granulocytes % 0.3 % (0-4); Lymphocytes # 2.8 K/mcL (0.6-4.6); Lymphocytes % 30.4 %; Monocytes # 0.6 K/mcL (0.0-1.3); Monocytes % 6.5 %; Neutrophils # 5.5 K/mcL (1.6-8.9)
[2018-06-21 06:11] LABS: BUN/Creatinine Ratio 15 (6-26); Blood Urea Nitrogen 10 mg/dL (6-20); Calcium 8.4 mg/dL (8.6-10.3); Carbon Dioxide 26 mEq/L (23-29); Chloride 106 mEq/L (98-107); Glucose 145 mg/dL (70-105); Osmolality,Calculated 288 (280-300); Sodium 138 mEq/L (136-145); eGFR For Non-African Americans > 60 (> 60)
--- NOTE | 2018-06-21 07:47 | Urology Progress Note ---
Date of Encounter: 06/21/18 Time of Encounter: 07:46 - Assessment and Plan (1) Ureterolithiasis Current Visit: Yes Status: Acute Assessment and plan: 57-year-old woman with a history of a right obstructing ureteral stone. I recommend that she undergo a right ureteroscopy, laser lithotripsy, and stent placement. She was informed of the risks of the procedure including but not limited to bleeding, infection, injury to other structures, need for further procedures, stent irritation, incomplete fragmentation, ureteral perforation, need for nephrostomy tube, need for open repair, risks unforeseen, and the risk of anesthesia. She is willing to proceed. I will order gentamicin occupational health and safety adviser to the OR. Progress Note Narrative: Doing well today. Pain is controlled. No issues overnight. Objective Initial Vital Signs Temp Pulse Resp BP Pulse Ox 98.9 F 121 18 115/81 93 06/20/18 11:55 06/20/18 11:55 06/20/18 11:55 06/20/18 11:55 06/20/18 11:55 - General physical appearance Present: well developed, well nourished, no distress - Labs 06/21/18 05:25 06/21/18 05:25 Diabetes panel 06/21/18 Range/Units 05:25 Sodium 138 (136-145) mEq/L Potassium 4.0 (3.5-5.1) mEq/L Chloride 106 (98-107) mEq/L Carbon Dioxide 26 (23-29) mEq/L BUN 10 (6-20) mg/dL Creatinine 0.67 (0.60-1.20) mg/dL Glucose 145 H (70-105) mg/dL Calcium 8.4 L (8.6-10.3) mg/dL Calcium panel 06/21/18 Range/Units 05:25 Calcium 8.4 L (8.6-10.3) mg/dL Pituitary panel 06/21/18 Range/Units 05:25 Sodium 138 (136-145) mEq/L Potassium 4.0 (3.5-5.1) mEq/L Chloride 106 (98-107) mEq/L Carbon Dioxide 26 (23-29) mEq/L BUN 10 (6-20) mg/dL Creatinine 0.67 (0.60-1.20) mg/dL Glucose 145 H (70-105) mg/dL Calcium 8.4 L (8.6-10.3) mg/dL Adrenal panel 06/21/18 Range/Units 05:25 Sodium 138 (136-145) mEq/L Potassium 4.0 (3.5-5.1) mEq/L Chloride 106 (98-107) mEq/L Carbon Dioxide 26 (23-29) mEq/L BUN 10 (6-20) mg/dL Creatinine 0.67 (0.60-1.20) mg/dL Glucose 145 H (70-105) mg/dL Calcium 8.4 L (8.6-10.3) mg/dL Consult Discharge Plan - Plan Referrals: Rojelio Parkinson MD [Partnered Physician] - Tila Quezada MD [Primary Care Provider] -
--- NOTE | 2018-06-21 10:56 | Anesthesia Evaluation PreOp ---
Date of Encounter: 06/21/18 Time of Encounter: 10:54 - Past History Planned Operation: Right Ureteroscopic Stone Extraction Cardiac History: HTN, Hyperlipidemia Pulmonary History: Former smoker (quit 37 years ago) BI MANAGER History: Seizures (x 1 2007, none since) Other Medical History: Diabetes Type II, Thyroid (Hypo) Anesthesia History: Problems (PONV) : No Alcohol Use: none Drug use: none Medications and Allergies Albuterol Sulfate [Albuterol Inhaler] 2 puff IH Q4H PRN 04/09/18 [History] Aspirin Enteric Coated [Aspirin EC] 81 mg PO DAILY 04/09/18 [History] Buspirone HCl [Buspar] 15 mg PO QID 04/09/18 [History] Cholecalciferol (D-3) [Vitamin D] 2,000 unit PO DAILY 04/09/18 [History] Ezetimibe 10 mg PO HS 04/09/18 [History] Ferrous Sulfate [Iron] 325 mg PO BID 04/09/18 [History] Levothyroxine Sodium [Levoxyl] 200 mcg PO DAILY 04/09/18 [History] Metformin HCl [Metformin HCl ER] 500 mg PO QID 04/09/18 [History] Neomycin Sulfate 500 mg PO MOWEFR 04/09/18 [History] Potassium Citrate [Urocit-K] 20 meq PO BID 04/09/18 [History] Pregabalin [Lyrica] 200 mg PO TID 04/09/18 [History] Flunisolide 2 spr NS BID 05/07/18 [History] OxyCODONE Immed Rel [Roxicodone 5 MG] 5 mg PO Q8H 05/07/18 [History] Zolmitriptan [Zomig] 5 mg PO DAILY PRN 05/07/18 [History] hydroCHLOROthiazide [Hydrochlorothiazide] 12.5 mg PO DAILY 05/07/18 [History] 3 Allergy/AdvReac Type Severity Reaction Status Date / Time acetaminophen [From Tylenol] Allergy See Verified 05/19/18 10:53 Comments cephalexin Allergy Hives Verified 05/19/18 10:53 ciprofloxacin [From Cipro] Allergy Hives Verified 05/19/18 10:53 Erythromycin Base Allergy Hives Verified 05/18/18 04:45 nitrofurantoin Allergy Hives Verified 05/19/18 10:53 NSAIDS (Non-Steroidal Allergy See Verified 05/19/18 10:53 Anti-Inflamma Comments Penicillins Allergy Rash Verified 05/19/18 10:53 aspirin AdvReac See Verified 05/19/18 10:53 Comments dichloralphenazone AdvReac Hypertensio Verified 05/18/18 04:45 [From Midrin] n Iodinated Contrast- Oral and AdvReac See Verified 05/19/18 10:53 IV Dye Comments Isometheptene [From Midrin] AdvReac Hypertensio Verified 05/18/18 04:45 n [id number] Antimigraine AdvReac See Verified 05/19/18 10:53 Agents Comments - Meds/Allergy Pre-op Review Medications Reviewed: Yes Allergies Reviewed: Yes Beta Blockers on Current Med List: No Anesthesia Results - Labs 06/21/18 05:25 06/21/18 05:25 - Imaging EKG: report reviewed (SR) Anesthesia Exam Vital Signs/O2 Sat, Most Current Temp Pulse Resp BP Pulse Ox 98.2 F 80 18 101/64 94 06/21/18 07:30 06/21/18 07:30 06/21/18 07:30 06/21/18 07:30 06/21/18 07:30 Blood glucose: 154 NPO (# of Hours): > 8 hrs Pain Scale: 0 Pain Scale Used: Numeric (1 - 10) - HEENT Pupil (Motor): Pupils equal, EOMI Mallampati: II Teeth: Normal Oral Opening: Greater than 3 - BI MANAGER LOC: Oriented BI MANAGER Motor: Normal RUE, Normal LUE, Normal RLE, Normal LLE, Normal Face BI MANAGER Sensory: Normal: RUE, LUE, RLE, LLE, Face - Cardiac Rhythm: Regular Murmur: None JVD: No Carotid Bruit: No - Pulmonary Breath Sounds: bilateral Clear Respiratory Effort: Symmetrical Anesthesia Assess/Plan ASA Score: 3 Modified [place] Scale for Level of Consciousness: Cooperative, oriented, and tranquil Anesthetic Plan: General Autologous Blood: Yes Monitoring Plan: Standard Monitors Recovery Plan: PACU
[2018-06-21] MEDS ORDERED: Propofol 500 MG/50 ML INFUS..BTL ONE (11:19)
[2018-06-21] MEDS ORDERED: Ondansetron 4 MG/2 ML VIAL ONE (11:19)
[2018-06-21] MEDS ORDERED: Dexamethasone 4 MG/ML VIAL ONE (11:19)
[2018-06-21] MEDS ORDERED: *HR* FentaNYL (PF) 100 MCG/2 ML VIAL ONE (11:19)
[2018-06-21] MEDS ORDERED: Lidocaine -MPF 2% 2 ML VIAL ONE (11:19)
[2018-06-21] MEDS ORDERED: *HR* HYDROmorphone (PF) 1 MG/ML SYRINGE IVP PRN (11:29)
[2018-06-21] MEDS ORDERED: Ondansetron 4 MG/2 ML VIAL IVP ONE (11:29)
[2018-06-21] MEDS ORDERED: *HR* OxyCODONE Immed Rel 5 MG TABLET PO PRN ×2 (11:29→13:20)
[2018-06-21] MEDS ORDERED: Isovue-300 50 ML VIAL IVP ONE (11:32)
[2018-06-21] MEDS ORDERED: *HR* Propofol 200 MG/20 ML VIAL IVP ONE (11:57)
--- NOTE | 2018-06-21 12:39 | Operative Note ---
Date of procedure: 06/21/18 Pre-op diagnosis: 5 mm midureteral stone Post-op diagnosis: same Procedure: Right ureteroscopic stone extraction using holmium laser Right retrograde pyelogram Right ureteral stent placement Anesthesia: GETA Surgeon: Bryce Sarkar Was there an information services assistant present: No Estimated blood loss (cc): 0 Specimen: Stone not sent Condition: stable Disposition: PACU Procedure in Detail: PROCEDURE IN DETAIL: Patient was taken back to the operating room, positioned supine on the operating table. Anesthesia was applied without complication. They were moved into dorsal lithotomy. Careful attention was maintained to cushion all pressure points for patient's safety. They were prepped and draped in sterile fashion. Time-out was performed with the proper patient and procedure. A 21-Kenyan rigid cystoscope was inserted into the bladder without difficulty. Systematic examination of bladder revealed no abnormalities. The ureteral orifice was cannulated using a 5-Kenyan ureteral Catheter and a retrograde pyelogram was performed using Isovue. It appeared a filling defect was present in the upper portion of the right ureter. There was mild hydroureter and hydronephrosis. At that point, a zip wire was placed through the 5-Kenyan and confirmed in the renal pelvis with fluoroscopy. An 8-10 dilator was then placed over the zip wire to passively dilate the ureteral orifice. A flexible ureteroscope was placed over the zip wire and did pass up the ureter and into the upper ureter. I initially did not visualize a stone and felt that the stone migrated proximally on placement of the ureteroscope. On examination of each of her calyceal systems there was significant stone burden present. I obtained a 1.8 tip less basket was able to extract 5-6 stones that I estimate were 3-5 mm in size. In the upper pole there were 2 large renal calculi that were too large to basket extract. I obtained a 200 mcn holmium laser fiber on a "dusting" setting and was able to fragment the stones into multiple small 1-2 mm fragments. Unfortunately I was not set up today from a time standpoint to basket extract all stone burden in her kidney. I felt that the visualize stone remaining was fragmented into small enough pieces to pass with the ureteral stent in place. At the end of the procedure the zip wire was replaced and A 4.8 x 26 ureteral stent was placed over the zip wire under fluoroscopy without complication. The bladder was drained along with the stone fragments. No stone was sent for specimen as we recently had a stone analysis. No string was left attached to the stent. My plan is to obtain a KUB in a few weeks prior to stent removal in the office.
--- NOTE | 2018-06-21 12:58 | Anesthesia Evaluation Post Op ---
Date of Encounter: 06/21/18 Time of Encounter: 12:58 - Vital Signs Vital Signs: Selected Entries 06/21/18 12:32 06/21/18 12:52 Temperature 98.1 F Pulse Rate 78 Respiratory Rate 16 Blood Pressure 111/85 O2 Sat by Pulse Oximetry 95 - Lungs Lungs: Clear Ascult./Percussion - Airway Airway: Non-obstructed - Cardiovascular Regular Rate - Mental Status Mental Status: Alert & Oriented, Answers Appropriately - Pain Pain Scale: 0 Pain Scale used: Numeric (1 - 10) - Nausea Vomiting Nausea Vomiting: Not Present - Hydration Hydration: Ice chips, Has not voided - Discharge PostOp Status: Transfer Patient to floor
[2018-06-21] MEDS ORDERED: Dextrose Gel 15 GM/37.5 ML TUBE PO PRN ×2 (13:20)
[2018-06-21] MEDS ORDERED: Ondansetron 4 MG/2 ML VIAL IVP PRN (13:20)
[2018-06-21] MEDS ORDERED: *HR* Dextrose 50 % in Water (Syg) 50 ML SYRINGE IVP PRN (13:20)
[2018-06-21] MEDS ORDERED: D5% in Water 1,000 ML IVC PRN (13:20)
[2018-06-21] MEDS ORDERED: Naloxone 0.4 MG/ML INJ IVP PRN (13:20)
[2018-06-21] MEDS ORDERED: ZOLMITRIPTAN 5 MG PO PRN (13:20)
[2018-06-21] MEDS: Pregabalin 50 MG CAPSULE PO SCH ×2 (14:06→21:20)
[2018-06-21] MEDS ORDERED: Gentamicin 260 MG in 0.9 % Sodium Chloride 100 ML IVPB ONE (16:00)
[2018-06-21] MEDS: Insulin LISPRO 300 UNITS/3 ML VIAL SQ SCH (16:46)
[2018-06-21] MEDS ORDERED: Insulin LISPRO 300 UNITS/3 ML VIAL SQ SCH ×2 (18:00→21:00)
[2018-06-21] MEDS ORDERED: Ketorolac 15 MG/ML VIAL IVP PRN (19:07)
[2018-06-21] MEDS: *HR* Metformin 500 MG TABLET PO SCH (21:03)
[2018-06-21] MEDS: Potassium Citrate 10 MEQ TABLET.ER PO SCH (21:19)
[2018-06-21] MEDS: FLUNISOLIDE NS SCH (21:20)
[2018-06-22] MEDS: 0.9 % Sodium Chloride 1,000 ML IVC SCH (03:44)
[2018-06-22] MEDS: OXYCODONE Oral CONC 10 MG/0.5 ML ORAL.SYG SL PRN ×2 (03:54→08:00)
[2018-06-22 07:03] VITALS: BP 120/80
--- NOTE | 2018-06-22 07:17 | Discharge Summary ---
Date of Encounter: 06/22/18 Time of Encounter: 07:14 - Discharge Diagnosis (1) Ureterolithiasis Priority: Primary Status: Acute - Hospital Course Hospital course: Ms. Bravo is a 57 year old female with a history of nephrolithiasis. She was admitted on 06/20/2018 for a right obstructing ureteral stone. On 06/21/2018 she underwent a right ureteroscopic stone extraction. She was discharged home on 06/22/2018. - Time Spent with Patient Total time spent providing and/or coordinating discharge services: Less than 30 minutes Labs on day of discharge: Labs from last 24 hours 06/21/18 06/20/18 07:23 21:23 POC Glucose 140 H 134 H - Impressions ITS Impressions Retrograde Pyelogram 06/21/18 11:45 IMPRESSION: Intraprocedural fluoroscopic spot images as above. See separate procedure report for more information. D/ / Reji Mishra MD / Reji Mishra MD Interpreting Provider: Reji Mishra MD - Discharge Medications Prescriptions: OxyCODONE Oral Soln [OxyCODONE ORAL SOLN] 10 mg PO Q6H PRN 7 Days #200 mls PRN Reason: Pain Home Medications: Albuterol Sulfate [Albuterol Inhaler] 2 puff IH Q4H PRN 04/09/18 [History] Aspirin Enteric Coated [Aspirin EC] 81 mg PO DAILY 04/09/18 [History] Buspirone HCl [Buspar] 15 mg PO QID 04/09/18 [History] Cholecalciferol (D-3) [Vitamin D] 2,000 unit PO DAILY 04/09/18 [History] Ezetimibe 10 mg PO HS 04/09/18 [History] Ferrous Sulfate [Iron] 325 mg PO BID 04/09/18 [History] Levothyroxine Sodium [Levoxyl] 200 mcg PO DAILY 04/09/18 [History] Metformin HCl [Metformin HCl ER] 2,000 mg PO DAILY 04/09/18 [History] Neomycin Sulfate 500 mg PO MOWEFR 04/09/18 [History] Potassium Citrate [Urocit-K] 20 meq PO BID 04/09/18 [History] Pregabalin [Lyrica] 200 mg PO TID 04/09/18 [History] Flunisolide 2 spr NS BID 05/07/18 [History] OxyCODONE Immed Rel [Roxicodone 5 MG] 5 mg PO Q8H 05/07/18 [History] Zolmitriptan [Zomig] 5 mg PO DAILY PRN 05/07/18 [History] hydroCHLOROthiazide [Hydrochlorothiazide] 12.5 mg PO DAILY 05/07/18 [History] OxyCODONE Oral Soln [OxyCODONE ORAL SOLN] 10 mg PO Q6H PRN 7 Days #200 mls 06/22 [Rx] Allergies/Adverse Reactions: 3 Allergy/AdvReac Type Severity Reaction Status Date / Time acetaminophen [From Tylenol] Allergy See Verified 05/19/18 10:53 Comments cephalexin Allergy Hives Verified 05/19/18 10:53 ciprofloxacin [From Cipro] Allergy Hives Verified 05/19/18 10:53 Erythromycin Base Allergy Hives Verified 05/18/18 04:45 nitrofurantoin Allergy Hives Verified 05/19/18 10:53 NSAIDS (Non-Steroidal Allergy See Verified 05/19/18 10:53 Anti-Inflamma Comments Penicillins Allergy Rash Verified 05/19/18 10:53 aspirin AdvReac See Verified 05/19/18 10:53 Comments dichloralphenazone AdvReac Hypertensio Verified 05/18/18 04:45 [From Midrin] n Iodinated Contrast- Oral and AdvReac See Verified 05/19/18 10:53 IV Dye Comments Isometheptene [From Midrin] AdvReac Hypertensio Verified 05/18/18 04:45 n [id number] Antimigraine AdvReac See Verified 05/19/18 10:53 Agents Comments Date of admission: 06/20/18 16:03 Primary care physician: Tila Quezada MD Discharging clinician: Rojelio Parkinson Anticipated date of discharge: 06/22/18 Exam Initial Vital Signs Temp Pulse Resp BP Pulse Ox 98.9 F 121 18 115/81 93 06/20/18 11:55 06/20/18 11:55 06/20/18 11:55 06/20/18 11:55 06/20/18 11:55 - General physical appearance Present: well developed, well nourished, no distress - Eyes Absent: icteric - ENT Present: normal nares - Neck Present: trachea midline - Respiratory Present: normal respiratory effort - Cardiovascular Cardiovascular exam IM: RRR - Abdomen Abdomen: Present: soft - Integumentary Present: no rash - Neurologic Present: normal coordination - Musculoskeletal Present: other (grossly normal.) - Patient Status Disposition: Home, Self-Care Condition: Fair Functional capacity at discharge: independent ambulation Overall status at discharge: patient is progressing back to baseline - Discharge Instructions Follow Up With: Tila Quezada MD [Primary Care Provider] - Bryce Sarkar MD [Partnered Physician] - (In 1-2 weeks for cystoscopy and stent removal. She should have a KUB prior to her visit.) Additional Instructions: 1. The patient can follow up in 1-2 weeks for cystoscopy and stent removal with Dr. Sarkar. 2. She should expect to feel flank pain with voiding. 3. The patient should call for any fevers, chills, nausea, emesis, or uncontrolled pain. 4. Please provide a work excuse if necessary for up to 1 week off. 5. She should have a KUB prior to her visit. - Diet and Activity Activity: increase activity as tolerated Diet: advance to your usual diet
[2018-06-22] MEDS: *HR* Metformin 500 MG TABLET PO SCH (07:33)
[2018-06-22] MEDS: Potassium Citrate 10 MEQ TABLET.ER PO SCH (07:56)
[2018-06-22] MEDS: Pregabalin 50 MG CAPSULE PO SCH (07:56)
[2018-06-22] MEDS: Insulin LISPRO 300 UNITS/3 ML VIAL SQ SCH (07:58)
[2018-06-22] MEDS: FLUNISOLIDE NS SCH (07:59)
[2018-06-22] MEDS ORDERED: Cholecalciferol (D-3) 1,000 UNIT TABLET PO SCH (09:00)
[2018-06-22] MEDS ORDERED: Aspirin Enteric Coated 81 MG Tablet PO SCH (09:00)
[2018-06-22] MEDS ORDERED: hydroCHLOROthiazide 25 MG TABLET PO SCH (09:00)
--- NOTE | 2018-06-24 15:45 | Electrocardiograph Report ---
[place] [id number] Test Date: 2018-06-20 Pat Name: Angeline Bravo Department: [id number] Room: 3A Gender: F [employer]: : [id number] Requested By: Candelaria Bolanos Order Number: [id number] Reading MD: Santy Singletary Measurements Intervals [place] Rate: 96 P: 49 SC: 143 QRS: 21 QRSD: 80 T: 59 QT: 354 QTc: 448 Interpretive Statements Sinus rhythm Abnormal R-wave progression, early transition Electronically Signed On 06-24-2018 15:44:19 EDT by Santy Singletary
== END 2018-06-22 10:51 | disposition home or self-care (01) ==
LOC: 3ANU 11:50 → EMEROOARM 11:50 → 3ANU 17:23
PROVIDERS: ADMIT Urology; ATTEND Urology

== ENCOUNTER 2021-07-19 07:42 | Observation (INO) ==
[~2021-07-19 07:42] MED LIST: Famotidine 20 MG/2 ML VIAL IVP ONE; Ringers Solution, Lactated 1,000 ML IVC ONE
[2021-07-19] MEDS ORDERED: Gentamicin 180 MG in 0.9 % Sodium Chloride 100 ML IVPB ONE (08:12)
[2021-07-19] MEDS ORDERED: Lidocaine -MPF 2% 5 ML VIAL ONE (08:36)
[2021-07-19] MEDS ORDERED: Ondansetron 4 MG/2 ML VIAL ONE (08:36)
[2021-07-19] MEDS ORDERED: *HR* Propofol 200 MG/20 ML VIAL IVP ONE (08:36)
[2021-07-19] MEDS ORDERED: *HR* FentaNYL (PF) 100 MCG/2 ML VIAL ONE ×2 (08:36→10:31)
[2021-07-19] MEDS ORDERED: Ondansetron 4 MG/2 ML VIAL IVP ONE (09:10)
[2021-07-19] MEDS ORDERED: Ondansetron 4 MG/2 ML VIAL IVP PRN ×2 (09:15→12:03)
[2021-07-19] MEDS ORDERED: *HR* OxyCODONE Immed Rel 5 MG TABLET PO PRN (09:15)
[2021-07-19] MEDS ORDERED: Naloxone 0.4 MG/ML INJ IVP PRN ×2 (09:16→12:03)
[2021-07-19] MEDS ORDERED: Nitroglycerin 0.4 MG TAB.SUBL SL PRN (09:16)
[2021-07-19] MEDS ORDERED: Albuterol 2.5 MG/3 ML NEBULIZER IH PRN (09:16)
[2021-07-19] MEDS ORDERED: Isovue-300 50ML VIAL ONE (09:34)
[2021-07-19] MEDS: *HR* FentaNYL (PF) 100 MCG/2 ML VIAL IVP PRN ×2 (11:04→11:10)
[2021-07-19] MEDS ORDERED: Hyoscyamine SL 0.125 MG TAB.SUBL SL PRN (12:03)
[2021-07-19] MEDS ORDERED: *HR* Belladonna Alkaloids/Opium 30 MG RECTAL SUPPOSITORY RC PRN (12:03)
[2021-07-19] MEDS: 0.9 % Sodium Chloride 1,000 ML IVC SCH (12:42)
[2021-07-19] MEDS: Pregabalin 50 MG CAPSULE PO SCH ×2 (13:04→20:30)
[2021-07-19 13:20] LABS: Hematocrit 45.7 % (35.3-44.9); Hemoglobin 14.2 g/dL (11.5-15.4)
[2021-07-19] MEDS: Acetaminophen IV 1,000 MG/100 ML BAG IVPB SCH (18:46)
[2021-07-19] MEDS: Insulin DETEMIR 100 UNIT/ML X5UNITS SUBQ SCH (20:38)
[2021-07-19] MEDS ORDERED: EZETIMIBE PO SCH (21:00)
[2021-07-20] MEDS: Acetaminophen IV 1,000 MG/100 ML BAG IVPB SCH ×2 (00:22→05:37)
[2021-07-20] MEDS: 0.9 % Sodium Chloride 1,000 ML IVC SCH (01:49)
[2021-07-20 08:11] VITALS: BP 118/68; PULSE 74; TEMP 97.4; O2SAT 93
[2021-07-20] MEDS: Pregabalin 50 MG CAPSULE PO SCH (08:19)
[2021-07-20] MEDS: Insulin DETEMIR 100 UNIT/ML X5UNITS SUBQ SCH (08:24)
[2021-07-20] MEDS ORDERED: DilTIAZem CD (24hr) 240 MG CAP.ER.24H PO SCH (09:00)
== END 2021-07-20 10:03 | disposition home or self-care (01) ==
LOC: SAMDAY 07:42 → 3ANU 07:42
PROVIDERS: ADMIT Urology; ATTEND Urology